=== PATIENT | male | born 1960 | race Native Hawaiian/Other Pacific Islander ===

== ENCOUNTER 2017-09-02 08:02 | Emergency (ER) | payer OTHER ==
[2017-09-02] MEDS ORDERED: ONDANSETRON 4 MG/2 ML VIAL IVP STA (08:12)
[2017-09-02] MEDS ORDERED: SODIUM CHLORIDE 0.9% 1,000 ML IV STA (08:12)
[2017-09-02 08:44] LABS: Basophils % (A) 0 %; Eosinophils # (A) 0.1 k/uL (0-0.7); Eosinophils % (A) 1 %; HCT 49.9 % (39.0-53.0); HGB 16.5 gm/dL (13.0-17.5); Lymphocytes % (A) 11 %; MCH 29.7 pg (25.0-35.0); MCV 90.2 fL (80.0-100.0); Mean Platelet Volume 7.4; Monocytes # (A) 0.4 k/uL (0-1.0); Monocytes % (A) 5 %; Neutrophils # (A) 7.3 k/uL (1.3-7.7); Neutrophils % (A) 82 %; Platelet Count 216 k/uL (150-450); RBC 5.54 m/uL (4.30-5.90); RDW 13.7 % (11.5-15.5); WBC 8.9 k/uL (3.8-10.6)
--- NOTE | 2017-09-02 08:47 | ED ---
Nausea/Vomiting/Diarrhea HPI - General Chief complaint: Nausea/Vomiting/Diarrhea Stated complaint: vomiting Time Seen by Provider: 09/02/17 08:12 Source: patient, RN notes reviewed Mode of arrival: ambulatory Limitations: no limitations - History of Present Illness Initial comments: 57-year-old male presents emergency Department with chief complaint of nausea vomiting. Patient states that he woke up at 3 AM abruptly and states that his stomach does not feel well. Patient states that a bowel movement that time which was not diarrhea. Denies any melena or hematochezia. Patient states that his been vomiting and has had several episodes since. Patient states that he has not felt well states that he felt dizzy and felt using a pass out. Patient denies any chest pain, shortness of breath. Patient states that he is pressure in his upper abdomen and sharp pain prior to him having a bout of emesis. Patient has had prior hernia repair but denies any prior cholecystectomy or appendectomy. Patient correlates his abdominal issues with medications. Patient states that he was switched to lisinopril from losartan. He states that he's taken on 3 separate occasions and every time he is taking that his stomach has not felt well. - Related Data Home Medications Medication Instructions Recorded Confirmed HYDROcodone/APAP 5-325MG [[place] 1 tab PO DAILY PRN 09/02/17 09/02/17 5-325] Lisinopril-Hctz 20-25 mg 1 tab PO DAILY 09/02/17 09/02/17 [Zestoretic 20-25] Metoprolol Tartrate [Lopressor] 50 mg PO BID 09/02/17 09/02/17 amLODIPine [Norvasc] 10 mg PO DAILY 09/02/17 09/02/17 Previous Rx's Medication Instructions Recorded Ondansetron Odt [Zofran Odt] 4 mg PO Q8HR PRN #10 tab 09/02/17 Allergies Allergy/AdvReac Type Severity Reaction Status Date / Time No Known Allergies Allergy Verified 09/02/17 09:26 Review of Systems ROS Statement: Those systems with pertinent positive or pertinent negative responses have been documented in the HPI. ROS Other: All systems not noted in ROS Statement are negative. Past Medical History Past Medical History: Hypertension History of Any Multi-Drug Resistant Organisms: None Reported Past Surgical History: Orthopedic Surgery, Tonsillectomy Past Psychological History: No Psychological Hx Reported Smoking Status: Never smoker Past Alcohol Use History: None Reported Past Drug Use History: None Reported General Exam Limitations: no limitations General appearance: alert, in no apparent distress Head exam: Present: atraumatic, normocephalic, normal inspection Eye exam: Present: normal appearance, PERRL, EOMI. Absent: scleral icterus, conjunctival injection, periorbital swelling ENT exam: Present: normal exam, normal oropharynx, mucous membranes moist Neck exam: Present: normal inspection, full ROM. Absent: tenderness, meningismus, lymphadenopathy Respiratory exam: Present: normal lung sounds bilaterally. Absent: respiratory distress, wheezes, rales, rhonchi, stridor Cardiovascular Exam: Present: regular rate, normal rhythm, normal heart sounds. Absent: systolic murmur, diastolic murmur, rubs, gallop, clicks GI/Abdominal exam: Present: soft, tenderness (Mild to moderate upper abdominal tenderness), normal bowel sounds. Absent: distended, guarding, rebound, rigid Back exam: Absent: CVA tenderness (R), CVA tenderness (L) Skin exam: Present: warm, dry, intact, normal color. Absent: rash Course Vital Signs 09/02/17 08:05 Temperature 98.3 F Pulse Rate 75 Respiratory 18 Rate Blood Pressure 175/80 O2 Sat by Pulse 98 Oximetry Medical Decision Making - Medical Decision Making 57-year-old male presents from for nausea vomiting. Patient had some upper abdominal pain. Patient has normal lab work though CT shows no evidence of jejunitis. This most likely is viral nature. He does feel improved after antiemetics and fluids. - Lab Data Result diagrams: 09/02/17 08:33 09/02/17 08:33 Lab Results 09/02/17 09/02/17 09/02/17 Range/Units 08:33 08:33 09:07 WBC 8.9 (3.8-10.6) k/uL RBC 5.54 (4.30-5.90) m/uL Hgb 16.5 (13.0-17.5) gm/dL Hct 49.9 (39.0-53.0) % MCV 90.2 (80.0-100.0) fL MCH 29.7 (25.0-35.0) pg MCHC 33.0 (31.0-37.0) g/dL RDW 13.7 (11.5-15.5) % Plt Count 216 (150-450) k/uL Neutrophils % 82 % Lymphocytes % 11 % Monocytes % 5 % Eosinophils % 1 % Basophils % 0 % Neutrophils # 7.3 (1.3-7.7) k/uL Lymphocytes # 1.0 (1.0-4.8) k/uL Monocytes # 0.4 (0-1.0) k/uL Eosinophils # 0.1 (0-0.7) k/uL Basophils # 0.0 (0-0.2) k/uL Sodium 142 (137-145) mmol/L Potassium 4.1 (3.5-5.1) mmol/L Chloride 104 (98-107) mmol/L Carbon Dioxide 27 (22-30) mmol/L Anion Gap 11 mmol/L BUN 26 H (9-20) mg/dL Creatinine 0.85 (0.66-1.25) mg/dL Est GFR (CKD-EPI)AfAm >90 (>60 ml/min/1.73 sqM) Est GFR (CKD-EPI)NonAf >90 (>60 ml/min/1.73 sqM) Glucose 129 H (74-99) mg/dL Calcium 10.3 H (8.4-10.2) mg/dL Total Bilirubin 0.7 (0.2-1.3) mg/dL AST 20 (17-59) U/L ALT 38 (21-72) U/L Alkaline Phosphatase 78 (38-126) U/L Total Protein 7.5 (6.3-8.2) g/dL Albumin 4.6 (3.5-5.0) g/dL Amylase 86 (30-110) U/L Lipase 52 (23-300) U/L Urine Color Yellow Urine Appearance Clear (Clear) Urine pH 7.0 (5.0-8.0) Ur Specific [place] 1.032 (1.001-1.035) Urine Protein Negative (Negative) Urine Glucose (UA) Negative (Negative) Urine Ketones Negative (Negative) Urine Blood Negative (Negative) Urine Nitrite Negative (Negative) Urine Bilirubin Negative (Negative) Urine Urobilinogen <2.0 (<2.0) mg/dL Ur Leukocyte Esterase Negative (Negative) Disposition Clinical Impression: Jejunitis, Enteritis Disposition: HOME SELF-CARE Condition: Stable Instructions: Acute Nausea and Vomiting (ED) Additional Instructions: Please return to the Emergency Department if symptoms worsen or any other concerns. Prescriptions: Ondansetron Odt [Zofran Odt] 4 mg PO Q8HR PRN #10 tab PRN Reason: Nausea Is patient prescribed a controlled substance at d/c from ED?: No Referrals: Margie Watson MD [Primary Care Provider] - 1-2 days Time of Disposition: 10:24
[2017-09-02 08:52] LABS: ALT 38 U/L (21-72); AST 20 U/L (17-59); Albumin 4.6 g/dL (3.5-5.0); Alkaline Phosphatase 78 U/L (38-126); Amylase 86 U/L (30-110); Anion Gap 11 mmol/L; Blood Urea Nitrogen 26 mg/dL (9-20); Calcium 10.3 mg/dL (8.4-10.2); Carbon Dioxide 27 mmol/L (22-30); Chloride 104 mmol/L (98-107); Glucose 129 mg/dL (74-99); Lipase 52 U/L (23-300); Potassium 4.1 mmol/L (3.5-5.1); Sodium 142 mmol/L (137-145); Total Bilirubin 0.7 mg/dL (0.2-1.3); Total Protein 7.5 g/dL (6.3-8.2)
[2017-09-02] MEDS ORDERED: KETOROLAC 30 MG/ML 1 ML VIAL IVP STA (09:09)
[2017-09-02 09:20] LABS: Appearance,Urine Clear (Clear); Bilirubin,Urine Negative (Negative); Blood,Urine Negative (Negative); Color,Urine Yellow; Glucose,Urine (UA) Negative (Negative); Ketones,Urine Negative (Negative); Leukocyte Esterase,Urine Negative (Negative); Nitrite,Urine Negative (Negative); Protein,Urine Negative (Negative); Specific Gravity,Urine 1.032 (1.001-1.035); Urobilinogen,Urine <2.0 mg/dL (<2.0)
--- NOTE | 2017-09-02 09:30 | CT ---
EXAMINATION TYPE: CT abdomen pelvis w con DATE OF EXAM: 09/02/2017 COMPARISON: NONE INDICATION: Vomiting for 5 hours DLP: 920.90 mGycm, Automated exposure control for dose reduction was used. CONTRAST: 100 ml mL of Isovue 300. Study performed without Oral Contrast TECHNIQUE: Axial images were obtained from above the diaphragm to the pubic rami in the axial plane a t 5 mm thick sections. Reconstructed images are reviewed on the computer in the coronal plane. FINDINGS: Limited CT sections are obtained the lung bases. The lung bases are clear. CT ABDOMEN: Liver: r tiny cyst may be at the superior medial right lobe liver measuring 0.4 cm. Spleen: Normal Pancreas: Normal Adrenal glands: The adrenal glands are normal. Gallbladder: Normal Kidneys: No masses are evident. No hydronephrosis is present. There is a 6.0 cm cyst at superior po le right kidney measuring 8 Hounsfield units. A 0.3 cm calcification is within the mid anterior left kidney without hydronephrosis. A 2.4 cm cyst on the posterior inferior right kidney measuring 17 Houn sfield units. Delayed images were obtained through the kidneys, which remain unremarkable. Aorta: Vascular calcification is within the aorta. Inferior vena cava: Normal. CT PELVIS: Proximal small bowel loops are dilated has some mildly thickened wall in the proximal jejunum. Correl ate for jejunitis. Study is done without oral contrast limiting the evaluation. A few diverticuli wit hout acute diverticulitis are within the sigmoid colon. Appendix: Normal as visualized. Urinary bladder: Normal. Genitourinary structures: Prostate is enlarged and contains multiple calcifications. Osseous structures: No suspicious lytic or sclerotic lesions. IMPRESSIONS: 1. Proximal jejunum has thickened roper are slightly prominent. Correlate for jejunitis. 2. Right renal cysts. 3. Nonobstructing left renal stone.
[2017-09-02 10:36] VITALS: BP 166/79; PULSE 61; RESP 16; TEMP 97.8
== END 2017-09-02 10:36 | disposition home or self-care (01) ==
LOC: EC 08:02
DX: K52.9 Noninfective gastroenteritis and colitis, unspecified (principal); I10 Essential (primary) hypertension; Z79.899 Other long term (current) drug therapy
CPT/HCPCS: 36415; 80053; 82150; 83690; 85025; 81003; 74177; 99284; 96374; 96375; 96361; J2405; J1885; Q9967

== ENCOUNTER 2017-11-07 08:38 | Emergency (ER) | payer OTHER ==
[2017-11-07] MEDS ORDERED: MORPHINE SULFATE 4 MG/ML SYRINGE IM STA (08:48)
[2017-11-07] MEDS ORDERED: LIDOCAINE 1% INJ 10MG/ML (20 ML MDV) SQ ONE (08:48)
[2017-11-07] MEDS ORDERED: ceFAZolin 1,000 MG VIAL IM STA (08:48)
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
[2017-11-07] MEDS ORDERED: ACET/COD 300 MG/30 MG STARTER PACK 6 TAB BTL PO STA (09:29)
--- NOTE | 2017-11-07 09:29 | XR ---
EXAMINATION TYPE: XR finger LT , 3 VIEWS DATE OF EXAM ORDERED: 11/07/2017 HISTORY: Pain. COMPARISON: None. FINDINGS: There has been amputation of the distal aspect of the index finger. This involves the tuft of the distal phalanx of the index finger. IMPRESSION: AMPUTATION OF THE TUFT OF THE DISTAL PHALANX OF THE LEFT INDEX FINGER. CODE B: INITIAL ENCOUNTER FOR OPEN FRACTURE TYPE ONE OR 2.
[2017-11-07 09:57] VITALS: BP 151/73; PULSE 72; RESP 16; TEMP 98.1
== END 2017-11-07 09:57 | disposition home or self-care (01) ==
LOC: EC 08:38
DX: S68.111A Complete traumatic metacarpophalangeal amputation of left index finger, initial encounter (principal); I10 Essential (primary) hypertension; Z79.899 Other long term (current) drug therapy; W20.8XXA Other cause of strike by thrown, projected or falling object, initial encounter; Y93.89 Activity, other specified
CPT/HCPCS: 99283; 64450; 96372 ×2; 73140; J2270; J0690; J2001

== ENCOUNTER → 2019-01-12 | Outpatient (CLI) | payer OTHER ==
--- NOTE | 2019-01-13 07:44 | US ---
EXAMINATION TYPE: US kidneys/renal and bladder DATE OF EXAM: 01/12/2019 COMPARISON: CT 09/02/2017 CLINICAL HISTORY: N28.1 Cyst of kidneys. EXAM MEASUREMENTS: Right Kidney: 10.3 x 3.8 x 5.1 cm Left Kidney: 10.2 x 5.0 x 4.8 cm Post Void Residual Volume: 3.6 mL Right Kidney: cysts upper pole 3.6 x 3.7 x 2.3 cm, lower pole 2.7 x 1.8 x 2.0 cm Left Kidney: small hyperechogenic area 1.1 x 1.0 x0.8 cm that may simply represent renal sinus fat t hat is prominent as no shadowing is seen. No hydro seen Bladder: wnl Bilateral Jets seen: Yes Normal Post Void Residual: Yes There is no evidence for hydronephrosis at this point in time. The urinary bladder is anechoic. Bila teral ureteral jets are seen. IMPRESSION: 1. 1.1 cm nonobstructing left renal calculus versus more likely prominent renal sinus fat on the left . No hydronephrosis of either kidney. 2. Right renal cysts as demonstrated on the prior CT of 09/02/2017. The larger measures smaller than o n the prior exam of 09/02/2018 and the second smaller mass has slightly enlarged in the interval.
== END | disposition home or self-care (01) ==
LOC: RADUSWWP 15:40
PROVIDERS: ATTEND Family Medicine
DX: N28.1 Cyst of kidney, acquired (principal)
CPT/HCPCS: 76770

== ENCOUNTER 2019-04-25 11:45 | Day surgery (SDC) | payer OTHER ==
[2019-04-24 10:24] VITALS: BMI 30.4
[~2019-04-25 11:45] MED LIST: HYDROmorphone 0.5 MG/0.5 ML SYRINGE IVP PRN; LACTATED RINGERS 1,000 ML IV SCH; LIDOCAINE 1% 20 ML VIAL (10MG/ML) FOR IV START INTRADERMA PRN; ONDANSETRON 4 MG/2 ML VIAL IVP ONE; Pre Op ABX Message 1 EACH MISC MISCELLANE ONE
[2019-04-25 12:13] VITALS: TEMP 97.9
[2019-04-25] MEDS ORDERED: BUPIVACAINE (PF) 0.5% 30 ML VIAL SQ ONE ×2 (13:19→13:35)
[2019-04-25] MEDS ORDERED: LIDOCAINE 2% (PF) 20 MG/ML 10 ML AMP SQ ONE ×2 (13:19→13:35)
[2019-04-25] MEDS ORDERED: PROPOFOL 10 MG/ML 20 ML VIAL IV ONE (13:19)
[2019-04-25] MEDS ORDERED: fentaNYL (PF) 50 MCG/ML 2 ML AMP ONE (13:19)
[2019-04-25] MEDS ORDERED: KETAMINE 10 MG/ML 20 ML VIAL ONE (13:19)
[2019-04-25] MEDS ORDERED: LIDOCAINE 1% INJ 10MG/ML (20 ML MDV) ONE (13:19)
[2019-04-25] MEDS ORDERED: MIDAZOLAM 2 MG/2 ML VIAL ONE (13:19)
[2019-04-25 14:12] VITALS: BP 139/81; PULSE 60; RESP 18
--- NOTE | 2019-04-26 05:11 | OP ---
OPERATIVE REPORT DATE OF SURGERY: 04/25/2019. PREOPERATIVE DIAGNOSIS: Chronic painful nail spike, status post partial amputation, left index finger tip. POSTOPERATIVE DIAGNOSIS: Chronic painful nail spike, status post partial amputation, left index finger tip. PROCEDURE: Excision of nail spike left index finger tip. INDICATIONS: This 58-year-old man had a prior partial amputation at the distal phalanx level. He has had a chronic painful nail spike which has not been adequately treated conservatively and is being excised at this time. DESCRIPTION OF PROCEDURE: This 58-year-old man taken was taken to the operative suite, given IV sedation. A digital block was performed of the left index finger with a combination of Xylocaine and Marcaine, both without epinephrine. Approximately 5 mL were used. A [place] drain was used as a proximal tourniquet. Under 4.5 loupe magnification, an elliptical full-thickness tissue was performed around the nail spike down to the periosteum of the remaining distal phalanx. The area was rongeured with a grand baby rongeur. The tourniquet was then released. Hemostasis was satisfactory. The wound was irrigated and closed with 5-0 nylon suture. A soft bulky dressing was applied. He was taken to recovery room in satisfactory condition. MMODL / IJN: [id number] /
== END 2019-04-25 14:36 | disposition home or self-care (01) ==
LOC: OR 11:45
PROVIDERS: ATTEND Orthopaedic Surgery Hand Surgery
DX: M79.645 Pain in left finger(s) (principal); M19.142 Post-traumatic osteoarthritis, left hand; S67.191S Crushing injury of left index finger, sequela; W20.8XXS Other cause of strike by thrown, projected or falling object, sequela; Z89.022 Acquired absence of left finger(s); I10 Essential (primary) hypertension; Z79.899 Other long term (current) drug therapy
CPT/HCPCS: 11750; 88305; J2250; J2001 ×2; J2405; J3010; J2704

== ENCOUNTER → 2019-05-19 | Outpatient (CLI) | payer OTHER ==
[2019-05-19 13:32] LABS: HCT 48.9 % (39.0-53.0); HGB 15.8 gm/dL (13.0-17.5); MCH 29.7 pg (25.0-35.0); MCHC 32.4 g/dL (31.0-37.0); MCV 91.5 fL (80.0-100.0); Mean Platelet Volume 8.2; Platelet Count 250 k/uL (150-450); RBC 5.34 m/uL (4.30-5.90); RDW 12.8 % (11.5-15.5); WBC 6.9 k/uL (3.8-10.6)
[2019-05-19 13:40] LABS: ALT 25 U/L (4-49); AST 22 U/L (17-59); African American GFR (CKD) >90 (>60 ml/min/1.73 sqM); Albumin 4.9 g/dL (3.5-5.0); Alkaline Phosphatase 80 U/L (38-126); Anion Gap 9 mmol/L; Blood Urea Nitrogen 18 mg/dL (9-20); Calcium 10.2 mg/dL (8.4-10.2); Carbon Dioxide 27 mmol/L (22-30); Chloride 104 mmol/L (98-107); Glucose 100 mg/dL (74-99); Non-African American GFR(CKD) >90 (>60 ml/min/1.73 sqM); Potassium 4.4 mmol/L (3.5-5.1); Sodium 140 mmol/L (137-145); Total Bilirubin 0.7 mg/dL (0.2-1.3)
[2019-05-19 13:43] LABS: INR 0.9 (<1.2); Partial Thromboplastin Time 23.8 sec (22.0-30.0); Prothrombin Time 9.6 sec (9.0-12.0)
[2019-05-19 13:58] LABS: Appearance,Urine Clear (Clear); Bilirubin,Urine Negative (Negative); Blood,Urine Negative (Negative); Color,Urine Yellow; Glucose,Urine (UA) Negative (Negative); Ketones,Urine Negative (Negative); Leukocyte Esterase,Urine Negative (Negative); Nitrite,Urine Negative (Negative); PH, Urine 5.5 (5.0-8.0); Protein,Urine Negative (Negative); Specific Gravity,Urine 1.025 (1.001-1.035); Urobilinogen,Urine <2.0 mg/dL (<2.0)
== END | disposition home or self-care (01) ==
LOC: LABPAT 12:03
PROVIDERS: ATTEND Orthopaedic Surgery
DX: Z01.810 Encounter for preprocedural cardiovascular examination (principal); Z01.812 Encounter for preprocedural laboratory examination; M17.11 Unilateral primary osteoarthritis, right knee
CPT/HCPCS: 80053; 81003; 85027; 85610; 85730; 87070; 93005

== ENCOUNTER → 2019-09-01 | Outpatient (CLI) | payer OTHER ==
--- NOTE | 2019-09-01 08:31 | US ---
EXAMINATION TYPE: US kidneys/renal and bladder DATE OF EXAM: 09/01/2019 COMPARISON: NONE CLINICAL HISTORY: N28.1 CYST OF KIDNEYS. EXAM MEASUREMENTS: Right Kidney: 11.9 x 5.1 x 5.6 cm Left Kidney: 12.0 x 6.1 x 5.1 cm Right Kidney: upper pole cyst measuring 5.1 x 5.0 x 5.0cm, lower pole cyst measuring 2.9 x 3.0 x 2.3 cm. These appears simple. Left Kidney: hyperechoic shadowing foci measuring 0.9 x 0.6 x 0.8cm, cyst mid measuring 1.4 x 1.6 x 1.2cm. Bladder: wnl Bilateral Jets seen: Yes IMPRESSION: 1. Right renal cysts. 2. Nonobstructing left renal stone
== END | disposition home or self-care (01) ==
LOC: RADUSWWP 07:38
PROVIDERS: ATTEND Family Medicine
DX: N28.1 Cyst of kidney, acquired (principal); N20.0 Calculus of kidney
CPT/HCPCS: 76770

== ENCOUNTER 2019-09-28 06:51 | Emergency (ER) | payer OTHER ==
[2019-09-28 06:58] VITALS: RESP 18; TEMP 98.2
[2019-09-28] MEDS ORDERED: MECLIZINE 12.5 MG TAB PO STA (07:17)
[2019-09-28] MEDS ORDERED: SODIUM CHLORIDE 0.9% 1,000 ML IV STA (07:17)
[2019-09-28] MEDS ORDERED: ONDANSETRON 4 MG/2 ML VIAL IVP STA (07:17)
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
[2019-09-28] MEDS ORDERED: SODIUM CHLORIDE 0.9% 1,000 ML IV SCH (07:30)
[2019-09-28 08:08] LABS: Basophils % (A) 0 %; Eosinophils % (A) 1 %; HCT 44.1 % (39.0-53.0); HGB 14.2 gm/dL (13.0-17.5); Lymphocytes # (A) 0.8 k/uL (1.0-4.8); Lymphocytes % (A) 19 %; MCH 29.3 pg (25.0-35.0); MCHC 32.2 g/dL (31.0-37.0); Mean Platelet Volume 8.3; Monocytes # (A) 0.3 k/uL (0-1.0); Monocytes % (A) 7 %; Neutrophils # (A) 3.2 k/uL (1.3-7.7); Neutrophils % (A) 72 %; Platelet Count 190 k/uL (150-450); RBC 4.84 m/uL (4.30-5.90); WBC 4.5 k/uL (3.8-10.6)
[2019-09-28 08:14] LABS: Appearance,Urine Clear (Clear); Bilirubin,Urine Negative (Negative); Blood,Urine Small (Negative); Color,Urine Yellow; Glucose,Urine (UA) Negative (Negative); Ketones,Urine Negative (Negative); Leukocyte Esterase,Urine Negative (Negative); Mucus,Urine Many /hpf; Nitrite,Urine Negative (Negative); Protein,Urine Trace (Negative); RBC,Urine 1 /hpf (0-5); Urobilinogen,Urine <2.0 mg/dL (<2.0); WBC,Urine 1 /hpf (0-5)
[2019-09-28 08:21] LABS: INR 0.9 (<1.2); Partial Thromboplastin Time 24.1 sec (22.0-30.0); Prothrombin Time 9.7 sec (9.0-12.0)
[2019-09-28 08:24] LABS: ALT 18 U/L (4-49); AST 20 U/L (17-59); African American GFR (CKD) >90 (>60 ml/min/1.73 sqM); Albumin 3.9 g/dL (3.5-5.0); Alkaline Phosphatase 63 U/L (38-126); Anion Gap 6 mmol/L; Blood Urea Nitrogen 14 mg/dL (9-20); Carbon Dioxide 24 mmol/L (22-30); Chloride 109 mmol/L (98-107); Glucose 104 mg/dL (74-99); Non-African American GFR(CKD) >90 (>60 ml/min/1.73 sqM); Potassium 3.9 mmol/L (3.5-5.1); Sodium 139 mmol/L (137-145); Total Bilirubin 0.8 mg/dL (0.2-1.3); Total Protein 6.4 g/dL (6.3-8.2)
--- NOTE | 2019-09-28 08:30 | CT ---
EXAMINATION TYPE: CT brain wo con DATE OF EXAM: 09/28/2019 COMPARISON: None HISTORY: 59-year-old male with dizziness, new onset vertigo TECHNIQUE: Examination was done in axial plane without intravenous contrast. Coronal and sagittal r econstructions performed. CT DLP: 1099.4 mGycm Automated exposure control for dose reduction was used. FINDINGS: There is no evidence of acute intracranial hemorrhage, acute ischemic changes, mass, mass-effect, or extra-axial fluid collection. There is no effacement of cerebral sulci or basal subarachnoid cister ns. There is no hydrocephalus. There is no midline shift. Pel[place]-white matter distinction is preserv ed. Paranasal sinuses and mastoid air cells well pneumatized. Only a small portion of the orbits/globes a re visualized. IMPRESSION: No acute intracranial abnormality seen.
[2019-09-28 08:57] VITALS: BP 161/84; PULSE 60
== END 2019-09-28 09:22 | disposition home or self-care (01) ==
LOC: EC 06:51
DX: R42 Dizziness and giddiness (principal); H55.00 Unspecified nystagmus; I10 Essential (primary) hypertension; Z79.899 Other long term (current) drug therapy
CPT/HCPCS: 36415; 93005; 80053; 85025; 85610; 85730; 81001; 70450; 99285; 96374; 96361; J2405

== ENCOUNTER → 2019-12-29 | Outpatient (CLI) | payer OTHER | END | disposition home or self-care (01) | LOC: LABWHC1 11:19 | PROVIDERS: ATTEND Family Medicine | DX: J01.90 Acute sinusitis, unspecified (principal); R53.83 Other fatigue; Z20.828 Contact with and (suspected) exposure to other viral communicable diseases | CPT/HCPCS: U0003; C9803 ==

== ENCOUNTER 2020-03-18 16:03 | Inpatient (IN) | payer OTHER ==
[2020-03-18 16:22] LABS: Glucose,Whole Blood 94 mg/dL (75-99)
[2020-03-18] MEDS ORDERED: SODIUM CHLORIDE 0.9% 1,000 ML IV STA (16:23)
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
[2020-03-18 16:30] LABS: Basophils # (A) 0.1 k/uL (0-0.2); Basophils % (A) 1 %; Eosinophils # (A) 0.1 k/uL (0-0.7); Eosinophils % (A) 2 %; HGB 15.7 gm/dL (13.0-17.5); Lymphocytes # (A) 1.4 k/uL (1.0-4.8); Lymphocytes % (A) 17 %; MCH 30.8 pg (25.0-35.0); MCHC 33.5 g/dL (31.0-37.0); MCV 91.8 fL (80.0-100.0); Mean Platelet Volume 7.2; Monocytes # (A) 0.6 k/uL (0-1.0); Monocytes % (A) 7 %; Neutrophils # (A) 5.9 k/uL (1.3-7.7); Neutrophils % (A) 72 %; Platelet Count 217 k/uL (150-450); RBC 5.12 m/uL (4.30-5.90); RDW 12.8 % (11.5-15.5); WBC 8.2 k/uL (3.8-10.6)
[2020-03-18 16:44] LABS: ALT 34 U/L (4-49); AST 34 U/L (17-59); African American GFR (CKD) >90 (>60 ml/min/1.73 sqM); Albumin 4.5 g/dL (3.5-5.0); Alkaline Phosphatase 78 U/L (38-126); Anion Gap 5 mmol/L; Blood Urea Nitrogen 14 mg/dL (9-20); Calcium 9.7 mg/dL (8.4-10.2); Carbon Dioxide 27 mmol/L (22-30); Chloride 107 mmol/L (98-107); Glucose 103 mg/dL (74-99); Non-African American GFR(CKD) >90 (>60 ml/min/1.73 sqM); Potassium 3.8 mmol/L (3.5-5.1); Sodium 139 mmol/L (137-145); Total Bilirubin 0.7 mg/dL (0.2-1.3); Total Protein 7.6 g/dL (6.3-8.2)
[2020-03-18 16:45] LABS: INR 0.9 (<1.2); Partial Thromboplastin Time 23.1 sec (22.0-30.0); Prothrombin Time 9.7 sec (9.0-12.0)
--- NOTE | 2020-03-18 16:56 | CT ---
EXAMINATION TYPE: CT brain wo con for TPA DATE OF EXAM: 03/18/2020 COMPARISON: 09/28/2019 HISTORY: left arm numbness CT DLP: unavailable mGycm Automated exposure control for dose reduction was used. Exam performed without contrast. Ventricles and sulci appear normal. There is no mass effect nor midline shift. There is no sign of in tracranial hemorrhage. Calvarium is intact. There is no evidence of cerebral edema. Skull base is int act. There is small mucus retention cyst left maxillary sinus. IMPRESSION: Negative unenhanced head CT scan. No change.
--- NOTE | 2020-03-18 17:29 | CT ---
EXAMINATION TYPE: CT angio head neck DATE OF EXAM: 03/18/2020 COMPARISON: None HISTORY: left arm numbness CT DLP: 623.9 mGycm Automated exposure control for dose reduction was used. CONTRAST: Performed with IV Contrast, patient injected with 65 mL of Isovue 370. There are 3-D post processed images. There is normal branching pattern of the great vessels on the aortic arch. There is bilateral arteria l flow in the subclavian arteries. There is arterial flow in the common internal and external carotid arteries bilaterally. There is wide patency of the carotid artery bifurcations. There is arterial fl ow in both vertebral arteries which are fairly symmetric. There is no evidence of carotid or vertebra l artery aneurysm or dissection. There is arterial flow in the vertebrobasilar artery system. There is arterial flow in the anterior middle and posterior cerebral arteries. I see no evidence of i ntracranial arterial stenosis. There is no aneurysm or neovascularity. There is some looping of the p osterior cerebral arteries proximally. There is no mass effect. There is normal opacification of the venous sinuses. The remainder of exam is unremarkable. IMPRESSION: Negative CT angiogram of the neck. Negative CT angiogram of the brain.
[2020-03-18] MEDS ORDERED: ASPIRIN 325 MG TAB PO STA (18:13)
[2020-03-18] MEDS: SODIUM CHLORIDE 0.9% 1,000 ML IV SCH (18:32)
[2020-03-18] MEDS: ATORVASTATIN 40 MG TAB PO SCH (18:35)
--- NOTE | 2020-03-18 19:11 | XR ---
EXAMINATION TYPE: XR chest 2V DATE OF EXAM: 03/18/2020 COMPARISON: 11/15/2008 HISTORY: Altered mental status TECHNIQUE: FINDINGS: Heart and mediastinum are normal. Lungs are clear. Diaphragm is normal. Bony thorax appears normal. IMPRESSION: Normal chest. No change.
[2020-03-18] MEDS ORDERED: MECLIZINE 25 MG TAB PO PRN (19:56)
[2020-03-18] MEDS ORDERED: ONDANSETRON ODT 4 MG TAB PO PRN (19:56)
[2020-03-18] MEDS ORDERED: ALPRAZolam 0.25 MG TAB PO PRN (19:57)
[2020-03-18] MEDS: HEPARIN SODIUM,PORCINE 5,000 UNIT/ML 1 ML VIAL SQ SCH (20:51)
[2020-03-18] MEDS: SPIRONOLACTONE 25 MG TAB PO SCH (20:51)
[2020-03-18] MEDS: METOPROLOL TARTRATE 50 MG TAB PO SCH (20:52)
--- NOTE | 2020-03-18 22:02 | HP ---
HISTORY AND PHYSICAL DATE OF SERVICE: 03/18/2020. CHIEF COMPLAINTS: Weakness and as well as left arm numbness and dizziness. HISTORY OF PRESENT ILLNESS: This 59-year-old gentleman with a past medical history of hypertension, history of DJD being followed by Dr. Pa Hernandez in the outpatient setting was experiencing some dizziness this morning. The patient had previously vertigo. The patient felt dizzy, unsteady this morning and subsequently patient had some clumsiness of the left upper arm. Subsequently again, patient had numbness on the left upper arm on multiple occasions. The patient came to [facility] and was admitted for evaluation and treatment. Initial labs were within normal limits. Patient underwent a CT scan of the brain which showed no acute abnormality. CT angio of the brain was also done which showed no abnormality. The patient admitted for further evaluation. Neurology evaluation in progress. The EKG showed occasional PVC, otherwise no acute changes are noted. There is no history of fever, rigors. No history of headache, loss of consciousness, seizures at this time. PAST MEDICAL HISTORY: Hypertension, history of vertigo, history of DJD, tonsillectomy. MEDICATIONS: Home medications are Zofran, Procardia, Antivert, vitamin C, Aldactone. Lopressor. ALLERGIES: None. FAMILY HISTORY: No history of heart disease or strokes in family. SOCIAL HISTORY: No history of smoking. No alcohol intake. REVIEW OF SYSTEMS: ENT: No diminished vision. No diminished hearing. Otherwise as mentioned earlier. CARDIOVASCULAR: S1, S2. Respiration: No cough. No hemoptysis. GI no nausea or vomiting. : Urine retention. Nervous system as mentioned earlier. ALLERGY/IMMUNOLOGY: No asthma or hayfever. MUSCULOSKELETAL as mentioned earlier. HEMATOLOGY/ONCOLOGY: No history of anemia. ENDOCRINE: No history of diabetes or hypothyroidism. CONSTITUTIONAL: As mentioned earlier. DERMATOLOGY: Negative. RHEUMATOLOGY: Negative. PSYCHIATRY: As mentioned. PHYSICAL EXAMINATION: The patient is alert and oriented times three. Pulse is 72, blood pressure 180/90, respiration 18, temperature 99.1, pulse ox 98% on room air. HEENT: Conjunctivae normal. Oral mucosa moist. Eye movements are fully noted in all directions. NECK is no jugular venous distention. No carotid bruit. No lymph node enlargement. Cardiovascular system: S1, S2 muffled. No S3, no S4. RESPIRATORY: Breath sounds diminished in the bases. No rhonchi. No crackles. ABDOMEN: Soft, nontender. No mass palpable. LEGS: No edema. No swelling. Nervous system: Higher functions as mentioned earlier. Moves all 4 limbs. No focal motor or sensory deficits. LYMPHATICS: No lymph nodes palpable in the neck, axillae or groin. SKIN: No ulcer, no rash and no bleeding. JOINTS: No active deforming arthropathy. LABS: CBC within normal limits. INR 0.9. CMP within normal limits. ASSESSMENT: 1. Numbness and weakness of the left upper arm. Possible transient ischemic attack involving the right hemisphere. 2. Hypertension. 3. History of the renal cyst. 4. History of degenerative joint disease. RECOMMENDATIONS AND DISCUSSION: In this 59-year-old gentleman who presented with multiple medical issues, at this time, I recommend to continue current management and symptomatic treatment, antiplatelet agents, Lipitor. Neurology consultation. Complete neurovascular workup and as well as neuro checks. Prognosis guarded because of multiple complex medical issues. Further recommendations to follow. Home medications will be continued. Copy of this dictation forwarded to Dr. Vipul Winston who will follow the patient tomorrow. We will continue with permissive hypertension as well. See orders for details. MMODL / IJN: [id number] /
[2020-03-19] MEDS: SODIUM CHLORIDE 0.9% 1,000 ML IV SCH ×2 (06:20→16:41)
[2020-03-19] MEDS: PANTOPRAZOLE 40 MG TABLET PO SCH (06:20)
[2020-03-19 07:52] LABS: Basophils % (A) 1 %; Eosinophils % (A) 1 %; HCT 42.6 % (39.0-53.0); HGB 14.2 gm/dL (13.0-17.5); Lymphocytes % (A) 23 %; MCH 31.2 pg (25.0-35.0); MCHC 33.3 g/dL (31.0-37.0); MCV 93.7 fL (80.0-100.0); Mean Platelet Volume 7.4; Monocytes # (A) 0.3 k/uL (0-1.0); Monocytes % (A) 7 %; Neutrophils # (A) 2.9 k/uL (1.3-7.7); Neutrophils % (A) 67 %; Platelet Count 186 k/uL (150-450); RBC 4.54 m/uL (4.30-5.90); WBC 4.4 k/uL (3.8-10.6)
[2020-03-19 08:01] LABS: African American GFR (CKD) >90 (>60 ml/min/1.73 sqM); Anion Gap 2 mmol/L; Blood Urea Nitrogen 13 mg/dL (9-20); Carbon Dioxide 28 mmol/L (22-30); Chloride 108 mmol/L (98-107); Cholesterol 205 mg/dL (<200); Glucose 105 mg/dL (74-99); HDL Cholesterol 39 mg/dL (40-60); LDL Cholesterol,Calculated 141 mg/dL (0-99); Non-African American GFR(CKD) >90 (>60 ml/min/1.73 sqM); Potassium 4.2 mmol/L (3.5-5.1); Sodium 138 mmol/L (137-145); Triglycerides 126 mg/dL (<150)
[2020-03-19] MEDS ORDERED: ASPIRIN 325 MG TAB PO SCH (09:00)
[2020-03-19] MEDS: METOPROLOL TARTRATE 50 MG TAB PO SCH (10:02)
[2020-03-19] MEDS: SPIRONOLACTONE 25 MG TAB PO SCH (10:02)
[2020-03-19] MEDS: ASCORBIC ACID 500 MG TAB PO SCH (10:02)
[2020-03-19] MEDS: HEPARIN SODIUM,PORCINE 5,000 UNIT/ML 1 ML VIAL SQ SCH ×2 (10:03→20:32)
[2020-03-19] MEDS: ATORVASTATIN 40 MG TAB PO SCH (10:03)
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
--- NOTE | 2020-03-19 10:32 | ECHOF ---
Referral Reason:Thrombus MEASUREMENTS -------- HEIGHT: 175.3 cm WEIGHT: 92.5 kg BP: RVIDd: 2.6 cm (< 3.3) IVSd: 1.3 cm (0.6 - 1.1) LVIDd: 4.0 cm (3.9 - 5.3) LVPWd: 1.6 cm (0.6 - 1.1) IVSs: 1.7 cm LVIDs: 3.2 cm LVPWs: 1.6 cm LA Diam: 4.2 cm (2.7 - 3.8) LAESV Index (A-L): 25.76 ml/m Ao Diam: 2.9 cm (2.0 - 3.7) AV Cusp: 2.0 cm (1.5 - 2.6) MV EXCURSION: 20.477 mm (> 18.000) MV EF SLOPE: 67 mm/s (70 - 150) EPSS: 0.9 cm MV E Boris: 0.45 m/s MV DecT: 204 ms MV A Boris: 0.91 m/s MV E/A Ratio: 0.49 FINDINGS -------- Sinus rhythm. This was a technically good study. LV size, wall thickness and systolic function are normal, with an EF greater than 55%. The left bea tricular size is normal. The right ventricle is normal in size. LA is midly dilated 29-33ml/m2. The right atrial size is normal. The aortic valve is trileaflet, and appears structurally normal. No aortic stenosis or regurgitation. Mild mitral regurgitation is present. Mild tricuspid regurgitation present. Right ventricular systolic pressure is normal at < 35 mmHg. There is no pulmonic regurgitation present. The aortic root size is normal. There is no pericardial effusion. CONCLUSIONS -------- 1. LV size, wall thickness and systolic function are normal, with an EF greater than 55%. 2. The left ventricular size is normal. 3. The right ventricle is normal in size. 4. LA is midly dilated 29-33ml/m2. 5. The right atrial size is normal. 6. Mild mitral regurgitation is present. 7. Mild tricuspid regurgitation present. 8. There is no pulmonic regurgitation present. 9. The aortic root size is normal. 10. There is no pericardial effusion. RN DOCUMENT IMPROVEMENT: Ynes Johnson RDCS
[2020-03-19] MEDS: CLOPIDOGREL 75 MG TAB PO SCH (11:35)
--- NOTE | 2020-03-19 12:55 | CT ---
EXAMINATION TYPE: CT brain wo con for TPA DATE OF EXAM: 03/19/2020 COMPARISON: 03/18/2020 HISTORY: 59-year-old male Neuro deficit, acute, stroke suspected. Left-sided weakness. TECHNIQUE: Examination was done in axial plane without intravenous contrast. Coronal and sagittal r econstructions performed. CT DLP: 1176.8 mGycm Automated exposure control for dose reduction was used. FINDINGS: There is no evidence of acute intracranial hemorrhage, acute ischemic changes, mass, mass-effect, or extra-axial fluid collection. There is no effacement of cerebral sulci or basal subarachnoid cister ns. There is no hydrocephalus. There is no midline shift. Pelletier-white matter distinction is preserv ed. Small polyp or mucosal retention cyst floor of the left maxillary sinus. Mastoid air cells well pneum atized. Cerumen left external auditory canal. Orbits and globes are intact. IMPRESSION: Stable exam. No acute intracranial abnormality seen.
[2020-03-19 12:59] LABS: Glucose,Whole Blood 141 mg/dL (75-99)
[2020-03-19] MEDS ORDERED: Alteplase PER PHARMACY Stroke 1 EACH MISC MISCELLANE PRN (13:18)
[2020-03-19] MEDS ORDERED: ALTEPLASE BOLUS FOR STROKE 8 MG in EMPTY SYRINGE 1 SYR IV STA (13:18)
[2020-03-19] MEDS ORDERED: ALTEPLASE 75 MG in EMPTY BAG 1 BAG IV STA (13:18)
[2020-03-19 13:25] LABS: Basophils # (A) 0.1 k/uL (0-0.2); Basophils % (A) 1 %; Eosinophils % (A) 1 %; HCT 46.5 % (39.0-53.0); HGB 15.2 gm/dL (13.0-17.5); Lymphocytes # (A) 1.6 k/uL (1.0-4.8); Lymphocytes % (A) 25 %; MCHC 32.7 g/dL (31.0-37.0); MCV 94.9 fL (80.0-100.0); Mean Platelet Volume 7.7; Monocytes # (A) 0.4 k/uL (0-1.0); Monocytes % (A) 6 %; Neutrophils % (A) 64 %; Platelet Count 221 k/uL (150-450); RBC 4.91 m/uL (4.30-5.90); WBC 6.2 k/uL (3.8-10.6)
[2020-03-19 13:28] LABS: INR 0.9 (<1.2); Partial Thromboplastin Time 23.7 sec (22.0-30.0); Prothrombin Time 9.9 sec (9.0-12.0)
--- NOTE | 2020-03-19 13:43 | CT ---
EXAMINATION TYPE: CODE STROKE: CTA head neck DATE OF EXAM: 03/19/2020 COMPARISON: 03/18/2020 HISTORY: 59-year-old male code stroke, Neuro deficit TECHNIQUE: Contiguous axial scanning of the head and neck performed with IV Contrast, patient injecte d with 60 mL of Isovue 370. Coronal/sagittal MIP reconstructions performed. 3-D reconstructions gener ated on a dedicated independent workstation. CT DLP: 673.1 mGycm Automated exposure control for dose reduction was used. FINDINGS: NECK: Conventional arch vessel branching anatomy. There may be mild atherosclerotic narrowing at the origin of the left vertebral artery. Otherwise, th e vertebral arteries are patent throughout its course. Possible moderate 50% narrowing at the proximal right common carotid artery at the level of the thora cic inlet, refer to axial image 23 and coronal image 14. Findings may be artifactual due to excessive artifact at this level. Remainder of the right common and internal carotid arteries are patent. The upper right ICA is tortuo us. The left common and internal carotid arteries are widely patent. Upper left ICA is tortuous. Minimal eccentric calcifications are present in the left carotid bulb. HEAD: V4 segment right vertebral artery becomes hypoplastic. Otherwise, both vertebral and basilar arteries are patent. Prominent posterior communicating artery on the right. The internal carotid arteries are patent as is the remainder of the anterior circulation. No aneurysmal change is seen. IMPRESSION: NECK: 1. POSSIBLE MODERATE 50% NARROWING PROXIMAL RIGHT COMMON CAROTID ARTERY AT THE LEVEL OF THE THORACIC INLET (AXIAL IMAGE 23 AND CORONAL IMAGE 14) VERSUS ARTIFACT. 2. OTHERWISE, PATENT CAROTID AND VERTEBRAL ARTERIES OF THE NECK. BRAIN: 3. NO LARGE VESSEL INTRACRANIAL ARTERIAL OCCLUSION, SIGNIFICANT STENOSIS, OR ANEURYSMAL CHANGE IS SEE N.
[2020-03-19 13:55] LABS: ALT 30 U/L (4-49); AST 26 U/L (17-59); African American GFR (CKD) >90 (>60 ml/min/1.73 sqM); Albumin 4.2 g/dL (3.5-5.0); Alkaline Phosphatase 75 U/L (38-126); Anion Gap 6 mmol/L; Blood Urea Nitrogen 14 mg/dL (9-20); Calcium 9.6 mg/dL (8.4-10.2); Carbon Dioxide 25 mmol/L (22-30); Chloride 104 mmol/L (98-107); Glucose 174 mg/dL (74-99); Non-African American GFR(CKD) 86 (>60 ml/min/1.73 sqM); Potassium 4.1 mmol/L (3.5-5.1); Sodium 135 mmol/L (137-145); Total Bilirubin 0.7 mg/dL (0.2-1.3); Total Protein 6.9 g/dL (6.3-8.2)
[2020-03-19] MEDS ORDERED: SODIUM CHLORIDE 0.9% 50 ML MINI-BAG IV ONE (14:18)
[2020-03-19] MEDS ORDERED: CLOPIDOGREL 75 MG TAB PO STA (14:34)
--- NOTE | 2020-03-19 14:48 | PN ---
PROGRESS NOTE DATE OF SERVICE: 03/19/2020 This 59-year-old gentleman admitted with possible TIA acute stroke again had symptomatic weakness and some left facial droop on the left side today which lasted about 40 minutes. Neurology following the patient closely. CT angio showed possible moderate 50% narrowing of the proximal and vascular surgery consult has been called. The patient has been transferred to ICU for q.[address] White, neurologist, and Alteplase also been initiated. PAST MEDICAL HISTORY: Reviewed. REVIEW OF SYSTEMS: CARDIOVASCULAR SYSTEM: No angina. RESPIRATORY SYSTEM: As mentioned earlier. GI: As mentioned earlier. : No dysuria. NERVOUS SYSTEM: As mentioned earlier. CURRENT MEDICATIONS: Current medications are reviewed and include: Xanax, Alteplase, aspirin. Lipitor, Plavix, heparin, Antivert. Doses are reviewed. PHYSICAL EXAMINATION: The patient is alert, oriented x3. Pulse 59, blood pressure 192/86, respirations 16, temperature normal, pulse ox 99% on room air. HEENT: Conjunctivae normal. NECK: No jugular venous distention. CARDIOVASCULAR: S1, S2 muffled. RESPIRATORY: Breath sounds diminished at the bases. A few scattered rhonchi and crackles. ABDOMEN: Soft, nontender. LEGS: No edema. No swelling. NERVOUS SYSTEM: Minimal weakness on the left side. SKIN: No ulcer, rash or bleeding. LABS: Cholesterol 205, LDL is 141. Other labs are noted. ASSESSMENT: 1. Acute weakness of the left side, recurrent, possible acute stroke involving the right hemisphere. 2. Right carotid artery stenosis about 50%. 3. Hyperlipidemia. 4. Hypertension. 5. History of renal cyst. 6. History of degenerative joint disease. 7. Increased random blood sugar. 8. Hyperlipidemia. RECOMMENDATIONS AND DISCUSSION: This 59-year-old gentleman who presented with multiple complex medical issues, we will monitor the patient closely. Continue the current medications, continue symptomatic treatment. Continue with the antiplatelet agents. Patient is on aspirin and Plavix. Continue with Lipitor. Continue the rest of medication. Monitor blood pressure closely. Permissive hypertension. Otherwise, closely follow with Neurology. We will consult Dr. Acuña for ICU management and also will obtain Dr. Powers's evaluation for vascular surgery because of the abnormal CTA findings which is noted in the repeat testing. Once again, the prognosis guarded. Further recommendations to follow. MMODL / IJN: [id number] / JAIMIE
[2020-03-19 14:53] LABS: Glucose,Whole Blood 151 mg/dL (75-99)
--- NOTE | 2020-03-19 15:02 | MR ---
EXAMINATION TYPE: MR brain wo con DATE OF EXAM: 03/19/2020 COMPARISON: CT brain 03/19/2020 HISTORY: stroke: left hand/arm weakness and feeling unsteady CONTRAST: Performed utilizing 0 mL intravenous Gadavist gadolinium contrast. TECHNIQUE: Multiplanar, multiecho imaging on a 3.0 Lizet magnet is performed through the brain. Stud y is performed within 24 hours of arrival to the hospital. The craniovertebral junction is normal. The pituitary is normal. Diffusion-weighted imaging is performed. There is subtle hypodensity within the posterior right basa l ganglion suspicious for developing infarct. Correlate with symptoms There are subcortical white matter changes. This may be slightly greater in the frontal regions. Larg est areas in the right frontal measuring 1.1 x 0.5 cm. Migraine headaches, microvascular ischemic yenny nge could be considered. Multiple sclerosis is not excluded. Ventricles and sulci are appropriate for the patient age. IMPRESSIONS: 1. Subtle hyperintensity on diffusion-weighted imaging within the posterior right basal ganglion and delgado radiata may be some acute developing ischemic change. Correlate with symptoms. 2. Scattered subcortical and deep white matter changes likely on the basis of chronic white matter is chemic change.
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
--- NOTE | 2020-03-19 17:56 | XR ---
EXAMINATION TYPE: XR shoulder complete LT DATE OF EXAM: 03/19/2020 COMPARISON: NONE HISTORY: Left shoulder pain TECHNIQUE: 3 views FINDINGS: There is no sign of fracture nor dislocation. There is mild spurring at the glenohumeral conrad int. The AC joint appears intact. IMPRESSION: No acute abnormality of the left shoulder.
--- NOTE | 2020-03-19 18:21 | EEG ---
ELECTROENCEPHALOGRAM REPORT DATE OF SERVICE: 03/19/2020. CLINICAL HISTORY: This is a 59-year-old gentleman with repeated episodes of transient left arm weakness. The video EEG was obtained to evaluate for seizure and epileptiform activity. RELEVANT MEDICATION: The patient is not on any antiepileptic drugs. EEG TYPE: A routine 21-channel EEG was performed with video using the 10/20 electrode placement system. DESCRIPTION: Wakefulness only is obtained. During wakefulness, there is a posterior-dominant rhythm of low to moderate voltage, reactive, well modulated, of 9.5 to 10.5 hertz activity. There was no physiological stage II sleep seen. There is significant motion artifact over FP2/F4 and F8 electrodes. INTERICTAL AND ICTAL: None. ACTIVATION PROCEDURE: Photic stimulation did not evoke a posterior driving response. Hyperventilation was not performed. CLINICAL INTERPRETATION: This is a normal awake routine EEG. There is no focal slowing, epileptiform discharges or seizure during the study. Clinical correlation is recommended. TEJA / EVON: [id number] / MTDD
[2020-03-20 03:45] LABS: Basophils % (A) 0 %; Eosinophils % (A) 1 %; HGB 14.1 gm/dL (13.0-17.5); Lymphocytes # (A) 1.4 k/uL (1.0-4.8); Lymphocytes % (A) 23 %; MCH 30.5 pg (25.0-35.0); MCHC 32.8 g/dL (31.0-37.0); MCV 92.9 fL (80.0-100.0); Mean Platelet Volume 7.5; Monocytes # (A) 0.5 k/uL (0-1.0); Monocytes % (A) 8 %; Neutrophils % (A) 66 %; Platelet Count 207 k/uL (150-450); RBC 4.63 m/uL (4.30-5.90); WBC 6.1 k/uL (3.8-10.6)
[2020-03-20] MEDS: SODIUM CHLORIDE 0.9% 1,000 ML IV SCH ×3 (03:58→20:23)
[2020-03-20 03:59] LABS: African American GFR (CKD) >90 (>60 ml/min/1.73 sqM); Anion Gap 6 mmol/L; Blood Urea Nitrogen 8 mg/dL (9-20); Calcium 9.4 mg/dL (8.4-10.2); Carbon Dioxide 25 mmol/L (22-30); Chloride 107 mmol/L (98-107); Glucose 110 mg/dL (74-99); Non-African American GFR(CKD) >90 (>60 ml/min/1.73 sqM); Potassium 3.7 mmol/L (3.5-5.1); Sodium 138 mmol/L (137-145)
[2020-03-20] MEDS ORDERED: POTASSIUM CHLORIDE ER 20 MEQ TAB.ER PO SCH (06:00)
[2020-03-20] MEDS: PANTOPRAZOLE 40 MG TABLET PO SCH (07:20)
--- NOTE | 2020-03-20 09:25 | US ---
EXAMINATION TYPE: US carotid duplex BILAT DATE OF EXAM: 03/20/2020 COMPARISON: CTA neck from yesterday CLINICAL HISTORY: TIA, carotid stenosis. TIA EXAM MEASUREMENTS: RIGHT: Peak Systolic Velocity (PSV) cm/sec ----- Right CCA: 87.1 ----- Right ICA: 90.5 ----- Right ECA: 132.3 ICA/CCA ratio: 1.0 RIGHT: End Diastole cm/sec ----- Right CCA: 12.9 ----- Right ICA: 27.0 ----- Right ECA: 11.1 LEFT: Peak Systolic Velocity (PSV) cm/sec ----- Left CCA: 125.8 ----- Left ICA: 96.9 ----- Left ECA: 119.4 ICA/CCA ratio: 0.8 LEFT: End Diastole cm/sec ----- Left CCA: 17.6 ----- Left ICA: 27.0 ----- Left ECA: 13.6 VERTEBRALS (direction of flow): Right Vertebral: Antegrade Left Vertebral: Antegrade Rhythm: Normal Grayscale images show no significant focal plaque at carotid bulb level on the right and mild eccentr ic plaque on the left which correlates with CT one day earlier. IMPRESSION: No hemodynamically significant stenosis seen in either internal carotid artery. Criteria for Assigning % of Stenosis / Diameter reduction (Estimation based on the indirect measurements of the internal carotid artery velocities (ICA PSV). 1. Normal (no stenosis)=ICA PSV < 125 cm/s: ratio < 2.0: ICA EDV<40 cm/s. 2. Less than 50% stenosis=ICA PSV < 125 cm/s: ratio < 2.0: ICA EDV<40 cm/s. 3. 50 to 69% stenosis=ICA PSV of 125 to 230 cm/s: ration 2.0 ? 4.0: ICA EDV 40-100 cm/s. 4. Greater than 70% stenosis to near occlusion= ICA PSV > 230 cm/s: ratio > 4.0: ICA EDV > 100 cm/s. 5. Near occlusion= ICA PSV velocities may be low or undetectable: variable ratio and ICA EDV. 6. Total occlusion=unable to detect flow.
[2020-03-20] MEDS: HEPARIN SODIUM,PORCINE 5,000 UNIT/ML 1 ML VIAL SQ SCH ×2 (09:36→20:22)
[2020-03-20] MEDS: CLOPIDOGREL 75 MG TAB PO SCH (09:37)
[2020-03-20] MEDS: ASPIRIN 81 MG PO SCH (09:37)
[2020-03-20] MEDS: ASCORBIC ACID 500 MG TAB PO SCH (09:37)
[2020-03-20] MEDS: ATORVASTATIN 40 MG TAB PO SCH (09:37)
--- NOTE | 2020-03-20 09:45 | P.PN ---
Subjective Progress Note Date: 03/20/20 Upon seeing the patient today in the ICU, he stated that yesterday while he was getting the MRI and that was in the afternoon he felt that he had worsening of his symptoms over the left and he felt his left arm and leg was weak. He stated that he attempted to notify the MRI technicians about his symptoms but his symptoms were improving. He continues to have some weakness over the left arm and he feels unsteady walk-in. Otherwise he said much better compared to yesterday when I saw him for the stroke pager activation. He denies of any headache, blurry vision, nausea or vomiting. MR the brain on 03/19/2020 reported as subtle hyperintensity on diffusion- weighted image with in the posterior right basal ganglia and the delgado radiata may be some acute developing ischemic change. Correlate with the symptoms. Scattered subcortical and deep white matter changes likely on the basis of chronic white matter ischemic changes. I personally reviewed the MRI and I personally agree in addition I felt like there was a small focus over the right frontal that I was able to see on the diffusion-weighted image. The systolic blood pressure predominantly in the last 24 hours has been ranging in between 130's to 150. There are episodes that the systolic blood pressure is 110s or 160. Objective - Vital Signs Vital signs: Vital Signs Temp 97.6 F 03/20/20 04:00 Pulse 81 03/20/20 07:00 Resp 17 03/20/20 07:00 BP 143/84 03/20/20 07:00 Pulse Ox 95 03/20/20 07:00 Intake & Output 03/19/20 03/20/20 03/20/20 18:59 06:59 18:59 Intake Total 800 1500 100 Output Total 1150 1225 325 Balance -350 275 -225 Weight 97.2 kg Intake: IV 300 1100 100 Sodium Chloride 0.9% 1, 300 1100 100 000 ml @ 100 mls/hr IV . Q10H [facility] Rx#:[id number] Intake, IV Titration 400 Amount Sodium Chloride 0.9% 1, 400 000 ml @ 100 mls/hr IV . Q10H [facility] Rx#:[id number] Oral 100 400 Output: Urine 1150 1225 325 Other: Voiding Method Toilet Urinal Urinal # Voids 2 1 1 - Exam GENERAL: The patient is lying in bed and is not in acute distress. NEUROLOGICAL: Higher mental function: The patient is awake, alert, oriented to self, place and time. Patient is following commands. No aphasia and no neglect. Cranial nerves: The pupils are round, equal and reactive to light and accommodation. Visual lopez are full to confrontation throughout. Extraocular movement is intact no nystagmus is noted. Facial sensation is normal to touch throughout. The facial strength is normal throughout. Hearing is normal bilaterally to hand rub. Tongue is midline and moved [id number] without any difficulty. No dysarthria is noted. Shoulder shrug is normal bilaterally. Motor: Gait seemed somewhat unsteady walking but was not leaning toward one side or the other. The strength is left upper extremity is 4- to 5-. Left hand glass cutting machine feeder is 5-. Otherwsise strength is 5/5. Normal tone and bulk. Cerebellum: Normal finger to nose bilaterally. Sensation: Sensation is normal to touch throughout. Reflexes (right/left): 2+ throughout. Plantars are downgoing bilaterally. - Labs CBC & Chem 7: 03/20/20 03:01 03/20/20 03:01 Labs: Abnormal Lab Results - Last 24 Hours (Table) 03/19/20 03/19/20 03/19/20 Range/Units 12:51 12:57 14:51 Sodium 135 L (137-145) mmol/L BUN (9-20) mg/dL Glucose 174 H (74-99) mg/dL POC Glucose (mg/dL) 141 H 151 H (75-99) mg/dL 03/20/20 Range/Units 03:01 Sodium (137-145) mmol/L BUN 8 L (9-20) mg/dL Glucose 110 H (74-99) mg/dL POC Glucose (mg/dL) (75-99) mg/dL Assessment and Plan Assessment: This is a 59-year-old gentleman that presented to the emergency department on 03/18/2020 for multiple episode of left hand/arm weakness and numbness lasting 20 minutes and less. Currently he is back to baseline. Acute ischemic stroke with symptoms of Left sided weakness (predominately left arm with unsteady walking) MRI Brain shows subtle hyperintesity over the posterior right basal ganglia, delgado radiata and I felt small focus on right frontal). Etiology likely small vessel disease. Cannot rule out cardioembolic Uncontrolled hypertension Dyslipidemia Plan: CT of the head is reported as negative unenhanced head CT scan. No change. CT angiography of the head and neck is reported as negative for both. CT of the head repeated on 03/19/2020 was repeated and it was reported as stable exam. No acute intracranial abnormality seen. CT angiography of the head and neck repeated on 03/19/2020 is reported as for the brain there is no large vessel intracranial arterial occlusion, significant stenosis or aneurysm at change is seen. While the neck is reported as possible moderate 50% narrowing proximal right common carotid artery at the level of the thoracic inlet, axial image 23 and coronal image 14 versus artifact. Otherwise, patent carotid and the vertebral arteries of the neck. MRI the brain on 03/19/2020 reported as subtle hyperintensity on diffusion- weighted image with in the posterior right basal ganglia and the delgado radiata may be some acute developing ischemic change. Correlate with the symptoms. Scattered subcortical and deep white matter changes likely on the basis of chronic white matter ischemic changes. I personally reviewed the MRI and I personally agree in addition I felt like there was a small focus over the right frontal that I was able to see on the diffusion-weighted image. Primary team consulted the vascular surgery team. Lipid profile is triglyceride of 126, cholesterol of 205, LDL of 141, HDL 39. 2-D echo: Was reported as left ventricular size, wall thickness and systolic function are normal with ejection fraction of 55%. Left atrium is mildly dilated. I ordered an event monitor. I consulted cardiology for KATHI. Because of the repeated episodes and also a concern was a seizure so an EEG was done on 03/19/2020 and is normal. There are no focal slowing, appropriate discharges or seizure on the EEG. Patient was started on meclizine 25 mg by mouth 1 tablet 3 times a day when necessary for vertigo. Occupation therapy, physical therapy and DIRECTOR OF PRODUCT DEVELOPMENT are consulted by the ED. Continue cardiac monitoring. TSH level: 2.80 which is normal. The goal systolic blood pressure is 180-200 for the next 24 hours. Please do not add any antihypertensive at this time especially since his blood pressure has been the below this range. Currently the patient is on 100cc/hr. We'll defer the rest of the medical management to the primary team. The plan was discussed with the patient and ICU team. Raymundo White M.D. Neuro-hospitalist Time with Patient: Less than 30
--- NOTE | 2020-03-20 12:30 | P.PN ---
Subjective Progress Note Date: 03/20/20 Principal diagnosis: Acute ischemic CVA This is a 59-year-old male, known history of hypertension, known history of vertigo, patient is maintained on multiple medications including metoprolol, Procardia, Aldactone, and Antivert. Yesterday, and while at the gym, around 12 PM, patient was doing some aerobic exercises and swimming, then 5 minutes later, as he was resting, patient felt he was unsteady and almost drunk type of feeling. Had no spinning sensation, no vertigo, no diplopia, no headache. Then he felt a sudden left hand and arm weakness. That episode lasted about 15-20 minutes. However he had 2 further episodes similar to this initial episode one at 20 p.m., and 1 at 4 PM. Continued to have intermittent episodes of left hand and arm weakness and numbness. Patient also felt dizzy and unsteady. Finally patient came to the hospital yesterday. Initial unenhanced CT of the head was negative. Echocardiogram was noted to be normal. Patient was seen today by neurology on consultation, and there was a debate whether to start the patient on TPA or not, as he was about to be started on TPA, his symptoms have improved, hence the urologist loaded the patient with Plavix, and he is recommending mostly treatment with Plavix without using TPA. Patient continues to have weakness of the left upper extremity feels numb and weak, he could raise it but with extreme difficulty. After being evaluated by neurology, he made arrangements for the patient to be transferred to the ICU, and I was asked to see him on consultation. Patient did not receive TPA. This was called off at the last minute. MRI of the brain done today showed subtle hyperintensity on diffusion-weighted imaging within the posterior right basal ganglia and and delgado radiata may be some ischemic change noted. There was also scattered supple cortical and deep white matter changes likely on the basis of chronic white matter ischemic change. Labs on this patient were noted to be relatively unremarkable including normal CBC, normal basic metabolic profile, however he was noted to have elevated LDL of 141, and elevated cholesterol of 205. Reevaluated today on 03/20/2020, patient remains in the ICU, he is now on room air with O2 saturation 97%. IV fluid is at 100 mL per hour. His neurological symptoms have dramatically improved, his left-sided weakness has almost resolved. Minimal left arm numbness persists. Patient is undergoing carotid ultrasound. Patient did not receive TPA, and he was seen by neurology today. The plan is to continue present antiplatelet therapy, and possibly transfer the patient out of the ICU to a regular medical floor with monitor. Labs today were noted to be basically unremarkable. Objective - Vital Signs Vital signs: Vital Signs Temp 98 F 03/20/20 12:00 Pulse 105 H 03/20/20 12:00 Resp 16 03/20/20 12:00 BP 150/88 03/20/20 12:00 Pulse Ox 96 03/20/20 12:00 Intake & Output 03/19/20 03/20/20 03/20/20 18:59 06:59 18:59 Intake Total 800 1500 500 Output Total 1150 1225 600 Balance -350 275 -100 Weight 97.2 kg Intake: IV 300 1100 500 Sodium Chloride 0.9% 1, 300 1100 500 000 ml @ 100 mls/hr IV . Q10H [facility] Rx#:[id number] Intake, IV Titration 400 Amount Sodium Chloride 0.9% 1, 400 000 ml @ 100 mls/hr IV . Q10H [facility] Rx#:[id number] Oral 100 400 Output: Urine 1150 1225 600 Other: Voiding Method Toilet Urinal Urinal # Voids 2 1 1 - Exam Physical Exam: Revealed a 59-year-old pleasant male in no distress. Undergoing carotid Doppler. Head: Atraumatic, normocephalic. HEENT:[Neck is supple.] [No neck masses.] [No thyromegaly.] [No JVD.] Chest: [Clear throughout, no crackles, no rhonchi, no wheezes.] Cardiac Exam: [Normal S1 and S2, no S3 gallop, no murmur.] Abdomen: [Soft, nontender, no megaly, no rebound, no guarding, normal bowel sounds.] Extremities: [No clubbing, no edema, no cyanosis.] Neurological Exam: Alert and oriented 3. Left-sided weakness has resolved. Psychiatric: Normal mood, affect and normal mental status examination. Skin: No rashes. - Labs CBC & Chem 7: 03/20/20 03:01 03/20/20 03:01 Labs: Abnormal Lab Results - Last 24 Hours (Table) 03/19/20 03/19/20 03/19/20 Range/Units 12:51 12:57 14:51 Sodium 135 L (137-145) mmol/L BUN (9-20) mg/dL Glucose 174 H (74-99) mg/dL POC Glucose (mg/dL) 141 H 151 H (75-99) mg/dL 03/20/20 Range/Units 03:01 Sodium (137-145) mmol/L BUN 8 L (9-20) mg/dL Glucose 110 H (74-99) mg/dL POC Glucose (mg/dL) (75-99) mg/dL Assessment and Plan Assessment: Impression: Acute TIA versus CVA, however considering the improvement I believe this was a TIA more so than CVA. History of hypertension. Dyslipidemia. Recommendation: Continue present treatment plan as outlined by neurology. Consider transferring the patient out of the ICU to a monitor bed on selective. Will follow on when necessary basis. Time with Patient: Less than 30
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
--- NOTE | 2020-03-20 15:47 | PN ---
PROGRESS NOTE DATE OF SERVICE: 03/20/2020 This 59-year-old gentleman admitted with recurrent TIA had features of acute stroke at this time. The patient has some weakness of the left upper limb which is flaccid, which is improving at this time. Internal carotid artery stenosis on the right side was suspected and the carotid Doppler was also done. Multiple consultants are following the patient closely. The carotid Doppler showed no hemodynamically significant stenosis in either internal carotid artery. The patient also had brain MRI recommended by Neurology, which showed subtle hyperintensity and diffuse edema in the posterior right basal ganglia and delgado radiata with some acute developing ischemic changes also noted. Patient is being closely monitored at this time. The COVID-19 testing is not available. PAST MEDICAL HISTORY: Reviewed. REVIEW OF SYSTEMS: CARDIOVASCULAR SYSTEM: As mentioned earlier. RESPIRATORY SYSTEM: As mentioned earlier. GI: As mentioned earlier. : No dysuria. NERVOUS SYSTEM: As mentioned earlier. CURRENT MEDICATIONS: Current medications are reviewed and include Xanax. Vitamin C, aspirin, Lipitor, Plavix, heparin, Antivert, alteplase was given. Doses are reviewed. PHYSICAL EXAMINATION: The patient is alert and oriented x3. Pulse 105, blood pressure 150/88, respirations 16, temperature 98 degrees, pulse ox 96% on room air. HEENT: Conjunctivae normal. NECK: No jugular venous distention. CARDIOVASCULAR: S1, S2 muffled. RESPIRATORY: Breath sounds diminished at the bases. No rhonchi, no crackles. ABDOMEN: Soft, nontender. LEGS: No edema, no swelling. NERVOUS SYSTEM: Minimal weakness of the left upper limb. LABS: CBC within normal limits. Sodium 138. Other labs are noted. Cholesterol noted. ASSESSMENT: 1. Acute right basal ganglia and as well as delgado radiata cerebrovascular accident with acute stroke causing left-sided weakness. 2. Ultrasound of carotid showed normal internal carotid artery. 3. Hypertension. 4. Hyperlipidemia. 5. History of renal cyst. 6. History of degenerative joint disease. 7. History of random blood sugar. 8. Hyperlipidemia. 9. Hyponatremia, mild. 10.Increased random blood sugar. RECOMMENDATIONS AND DISCUSSION: This 59-year-old gentleman presented with multiple complex medical issues, we will monitor the patient closely, continue the current medications. Patient has received alteplase. We will continue with antiplatelet and continue neuro checks, neurovascular evaluation and neurovascular workup. Guarded prognosis because of multiple complex medical issues. Further recommendations to follow. We will cut the IV fluid down and permissive hypertension. DVT prophylaxis. Prognosis guarded because of multiple complex medical issues. Further recommendations to follow. Discussed with the patient. Closely follow with multiple consultants including Vascular Surgery, Neurology and Cardiology. TEJA / EVON: [id number] /
[2020-03-21 04:10] LABS: Basophils # (A) 0.1 k/uL (0-0.2); Basophils % (A) 1 %; Eosinophils # (A) 0.1 k/uL (0-0.7); Eosinophils % (A) 2 %; HCT 43.3 % (39.0-53.0); HGB 14.5 gm/dL (13.0-17.5); Lymphocytes # (A) 1.2 k/uL (1.0-4.8); Lymphocytes % (A) 23 %; MCHC 33.4 g/dL (31.0-37.0); MCV 92.7 fL (80.0-100.0); Mean Platelet Volume 7.8; Monocytes # (A) 0.4 k/uL (0-1.0); Monocytes % (A) 7 %; Neutrophils # (A) 3.4 k/uL (1.3-7.7); Neutrophils % (A) 64 %; Platelet Count 184 k/uL (150-450); RBC 4.67 m/uL (4.30-5.90); WBC 5.3 k/uL (3.8-10.6)
[2020-03-21 04:22] LABS: African American GFR (CKD) >90 (>60 ml/min/1.73 sqM); Anion Gap 3 mmol/L; Blood Urea Nitrogen 12 mg/dL (9-20); Calcium 9.2 mg/dL (8.4-10.2); Carbon Dioxide 24 mmol/L (22-30); Chloride 110 mmol/L (98-107); Glucose 98 mg/dL (74-99); Non-African American GFR(CKD) >90 (>60 ml/min/1.73 sqM); Potassium 4.2 mmol/L (3.5-5.1); Sodium 137 mmol/L (137-145)
[2020-03-21] MEDS: SODIUM CHLORIDE 0.9% 1,000 ML IV SCH ×2 (06:58→10:37)
--- NOTE | 2020-03-21 08:21 | PN ---
PROGRESS NOTE Mr. Allen is a 59-year-old male with known history of hypertension, presented with CVA involving the left upper extremity that was waxing and waning. He is feeling better. He still has some difficulty with in his left arm, but better than before. His breathing stable. No chest pain. No dizziness. No palpitation. He continues to be in sinus mechanism. There is no evidence of atrial fibrillation. He continued to be on aspirin once a day, Lipitor 40 mg daily, Plavix 75 mg daily. PHYSICAL EXAMINATION: Blood pressure 133/80 with the heart rate in the 50s. LUNGS: Clear. HEART: Regular rate and rhythm. S1, S2. No S3. No rub. ABDOMEN: Soft, nontender. EXTREMITIES: No edema. LAB DATA: Lab data revealed BUN and creatinine 12 and 0.75, potassium 4.3, hemoglobin 14.5. His cholesterol is 205, LDL 141. I reviewed the data from his hospitalization in [facility] in July of 2016 and at that time he had a normal echocardiogram and no evidence of stress-induced ischemia by nuclear scan. IMPRESSION: 1. Cerebrovascular accident, recurrent. 2. Prior history of hypertension. 3. Hyperlipidemia. RECOMMENDATION: Patient will proceed with transesophageal echocardiogram today to rule out any left atrial appendage thrombus or atrial septal defect or PFO. The procedure as well as the risks and the complications were discussed with the patient who is in full understanding and agreement. Depending on the results of testing, further recommendation will be made. MMODL / IJN: [id number] /
[2020-03-21] MEDS ORDERED: fentaNYL (PF) 50 MCG/ML 2 ML AMP ONE (09:03)
[2020-03-21] MEDS ORDERED: MIDAZOLAM 2 MG/2 ML VIAL ONE (09:03)
--- NOTE | 2020-03-21 10:17 | ECHOT ---
TRANSESOPHAGEAL ECHOCARDIOGRAM INDICATION: Evaluation left atrial appendage, history of CVA. PROCEDURE: After explaining the procedure to the patient, its risks and the complications, his blood pressure, heart rate, O2 saturation was monitored. The throat was sprayed with Cetacaine. He received 2 mg intravenous Versed, 50 mcg intravenous fentanyl. The probe was introduced in the esophagus without difficulty. Images were obtained. Following that, the probe was removed. There was no immediate complication. FINDINGS: Left atrial size is normal. Left atrial appendage is normal. Left ventricular size and systolic function normal. The aortic valve, mitral valve, tricuspid and pulmonic valve are normal. Descending thoracic aorta appears to be normal. No pericardial effusion was noted. Contrast bubble study revealed no evidence of shunting across the interatrial septum. Doppler pulse wave and color Doppler were obtained and revealed a mild mitral with trace tricuspid regurgitation. There was no shunting by color Doppler study. CONCLUSION: 1. Normal left ventricular size and systolic function. 2. Mild mitral and trace to mild tricuspid regurgitation. 3. No evidence of shunting across the interatrial septum. 4. Normal appearance left atrial appendage. 5. Normal appearance of the descending thoracic aorta. MMODL / IJN: [id number] /
[2020-03-21] MEDS: PANTOPRAZOLE 40 MG TABLET PO SCH (10:28)
[2020-03-21] MEDS: ASPIRIN 81 MG PO SCH (10:28)
[2020-03-21] MEDS: HEPARIN SODIUM,PORCINE 5,000 UNIT/ML 1 ML VIAL SQ SCH ×2 (10:29→20:03)
[2020-03-21] MEDS: CLOPIDOGREL 75 MG TAB PO SCH (10:29)
[2020-03-21] MEDS: ATORVASTATIN 40 MG TAB PO SCH (10:29)
[2020-03-21] MEDS: ASCORBIC ACID 500 MG TAB PO SCH (10:29)
--- NOTE | 2020-03-21 11:15 | P.PN ---
Subjective Progress Note Date: 03/21/20 Principal diagnosis: Left-sided weakness, TIA/CVA The patient was seen and evaluated sitting up in bed in ICU. Patient underwent a KATHI this morning. Final results are still pending. He reports no further episodes of left upper or lower extremity weakness. Denies any other focal deficits. No acute changes through the night. States he was up and ambulating yesterday evening. Objective - Vital Signs Vital signs: Vital Signs Temp 98.9 F 03/21/20 08:45 Pulse 66 03/21/20 09:50 Resp 10 L 03/21/20 09:50 BP 140/65 03/21/20 09:50 Pulse Ox 100 03/21/20 09:50 Intake & Output 03/20/20 03/21/20 03/21/20 18:59 06:59 18:59 Intake Total 1050 370 Output Total 1200 225 Balance -150 145 Weight 90.6 kg Intake: IV 1050 20 Sodium Chloride 0.9% 1, 1050 20 000 ml @ 50 mls/hr IV . [facility] Rx#:[id number] Oral 350 Output: Urine 1200 225 Other: Voiding Method Urinal Urinal Toilet # Voids 1 - Exam General appearance: The patient is alert, oriented, in no acute distress. HET: Head is normocephalic and atraumatic. Pupils are equal and reactive. Neck: Supple without lymphadenopathy. Trachea midline. No carotid bruit bilaterally. Heart: S1 S2. Regular rate and rhythm. Lungs: No crackles or wheezes are heard. Abdomen: Soft, nontender, nondistended with bowel sounds. Extremities: Normal skin color and turgor. No cyanosis, rash, ulceration, clubbing, or edema. Radial and pedal pulses are 2/4 bilaterally. Neurological: No focal deficits. Left upper extremity with some mild weakness compared to right. - Labs CBC & Chem 7: 03/21/20 03:20 03/21/20 03:20 Labs: Abnormal Lab Results - Last 24 Hours (Table) 03/21/20 Range/Units 03:20 Chloride 110 H (98-107) mmol/L Assessment and Plan Assessment: 1. Acute ischemic stroke with symptoms of left-sided weakness 2. Carotid stenosis, no significant stenosis bilaterally per carotid duplex 2. Left extremity weakness and numbness 3. Uncontrolled hypertension 4. Dyslipidemia Plan: 1. Right eye duplex ordered and reviewed 2. Appreciate recommendations from neurology and cardiology 3. Optimal blood pressure control 4. KATHI ordered per cardiology, final results pending 5. Echocardiogram ordered 6. Agree with aspirin, Plavix and statin 7. Thank you for this consultation we will sign off at this time. There is no indication for vascular surgical intervention at this time. Patient may follow- up in the office as an outpatient in the future. The impression and plan of care has been dictated as directed. Dr. Hallman I performed a history and examination of this patient, discussed the same with the dictator. I agree with the dictator's note ,documented as a scribe. Any additional findings or plans will be noted.
[2020-03-21 12:13] LABS: Glucose,Whole Blood 115 mg/dL (75-99)
--- NOTE | 2020-03-21 13:53 | PN ---
PROGRESS NOTE DATE OF SERVICE: 03/21/2020 This 59-year-old gentleman admitted with repeat episodes of focal neurologic deficit involving the left upper lower lobe possibly had right-sided stroke, possibly suspected to have stenosis of internal carotid artery in the region of the origin. Vascular Surgery and Neurology following the patient closely. Cardiology seen the patient. A KATHI did not show any acute abnormality. No significant stenosis are noted per carotid duplex. The patient is on dual antiplatelet treatment and statin. Also patient being closely monitored. Brain MRI was personally reviewed. PAST MEDICAL HISTORY: Reviewed. REVIEW OF SYSTEMS: CARDIOVASCULAR SYSTEM: No angina. RESPIRATORY SYSTEM: No cough or hemoptysis. GI: No nausea. : No dysuria. NERVOUS SYSTEM: No numbness, weakness. ALLERGY/IMMUNOLOGY: Asthma. MUSCULOSKELETAL: As mentioned earlier. HEMATOLOGY/ONCOLOGY: No history of anemia. CURRENT MEDICATIONS: Current medications are reviewed and include Tylenol, Xanax, vitamin C, aspirin, Lipitor, Plavix, heparin, Antivert. PHYSICAL EXAMINATION: Patient is alert and oriented x3. Pulse is 84, blood pressure 144/80, respiration 10 , temperature normal, pulse ox 97% on 3 L. HEENT: Conjunctivae normal. NECK: No jugular venous distention. CARDIOVASCULAR: S1, S2 muffled. RESPIRATORY: Breath sounds are diminished at the bases. No rhonchi, no crackles. ABDOMEN: Soft, nontender. LEGS: No edema, no swelling. NERVOUS SYSTEM: Minimal weakness of the left upper limb. LAB INVESTIGATIONS: CBC within normal limits. Sodium 137, potassium 4.2. ASSESSMENT: 1. Acute right basal ganglia as well as delgado radiata cerebrovascular accident with acute stroke causing left-sided weakness. 2. Possible carotid artery stenosis at the origin. 3. Ultrasound of the carotids showed normal internal carotid artery. 4. Hypertension. 5. Hyperlipidemia. 6. History of renal cyst. 7. History of degenerative joint disease. 8. History of random blood sugar. 9. Hyperlipidemia. 10.Hyponatremia, mild. 11.Increased random blood sugar. RECOMMENDATIONS AND DISCUSSION: I recommend to continue current medications, continue symptomatic treatment. Continue the dual antiplatelet. Continue the DVT prophylaxis. Continue with Lipitor. I would also recommend possibly MRA of the system and as well as the neck arteries. Closely follow with Dr. White. Guarded prognosis. Further recommendations to follow. MMODL / IJN: [id number] / JAIMIE
--- NOTE | 2020-03-21 16:01 | MR ---
EXAMINATION TYPE: MR angio neck wo/w con DATE OF EXAM: 03/21/2020 COMPARISON: None HISTORY: Stroke CONTRAST: Standard multiplanar, multisequence MRI departmental protocol utilizing 9 mL intravenous Gadavist navarro olinium contrast. FINDINGS: 3-D [id number] imaging is performed through the carotid bifurcations. No flow gaps are evident. The vertebral arteries appear codominant. Internal and external carotid arteries appear well visualized. No significant flow-limiting stenosis is evident. Source images are reviewed. Vascular s tructures are patent to the skull base. IMPRESSION: No significant flow-limiting stenosis to the carotid bifurcations. Normal flow is within the vertebra l arteries extend into the skull base.
--- NOTE | 2020-03-21 16:13 | P.PN ---
Subjective Progress Note Date: 03/21/20 Patient was seen at bedside and he stated that the his left sided weakness has drastically improved and he denies any further numbness. He said that that he's been able to walk without any assistance and has no further episode of feeling unsteady. He had a transesophageal echocardiogram today in the morning and it's reported as normal left ventricular size and systolic function. No evidence of shunting across the anterior arterial septum. Normal appearance of left atrial appendage. Normal appearance of descending thoracic aorta. Objective - Vital Signs Vital signs: Vital Signs Temp 98.9 F 03/21/20 08:45 Pulse 84 03/21/20 12:00 Resp 10 L 03/21/20 09:50 BP 144/80 03/21/20 12:00 Pulse Ox 97 03/21/20 12:00 Intake & Output 03/20/20 03/21/20 03/21/20 18:59 06:59 18:59 Intake Total 1050 370 50 Output Total 1200 225 Balance -150 145 50 Weight 90.6 kg Intake: IV 1050 20 50 Sodium Chloride 0.9% 1, 1050 20 50 000 ml @ 50 mls/hr IV . Q20H [facility] Rx#:[id number] Oral 350 Output: Urine 1200 225 Other: Voiding Method Urinal Urinal Toilet # Voids 1 - Exam GENERAL: The patient is lying in bed and is not in acute distress. NEUROLOGICAL: Higher mental function: The patient is awake, alert, oriented to self, place and time. Patient is following commands. No aphasia and no neglect. Cranial nerves: The pupils are round, equal and reactive to light and accommodation. Visual lopez are full to confrontation throughout. Extraocular movement is intact no nystagmus is noted. Facial sensation is normal to touch throughout. The facial strength is normal throughout. Hearing is normal bilaterally to hand rub. Tongue is midline and moved [id number] without any difficulty. No dysarthria is noted. Shoulder shrug is normal bilaterally. Motor: Gait is deferred. The strength left hand sail finisher hand is 5-/5. Otherwise 5/5 throughout. Normal tone and bulk. Cerebellum: Normal finger to nose bilaterally. Sensation: Sensation is normal to touch throughout. Reflexes (right/left): 2+ throughout. Plantars are downgoing bilaterally. - Labs CBC & Chem 7: 03/21/20 03:20 03/21/20 03:20 Labs: Abnormal Lab Results - Last 24 Hours (Table) 03/21/20 03/21/20 Range/Units 03:20 12:10 Chloride 110 H (98-107) mmol/L POC Glucose (mg/dL) 115 H (75-99) mg/dL Assessment and Plan Assessment: This is a 59-year-old gentleman that presented to the emergency department on 03/18/2020 for multiple episode of left hand/arm weakness and numbness lasting 20 minutes and less. Currently he is back to baseline. * Acute ischemic stroke with symptoms of Left sided weakness (predominately left arm with unsteady walking)--improving MRI Brain shows subtle hyperintesity over the posterior right basal ganglia, delgado radiata and I felt small focus on right frontal). Etiology likely small vessel disease. Cannot rule out embolic * Uncontrolled hypertension * Dyslipidemia Plan: * CT of the head is reported as negative unenhanced head CT scan. No change. * CT angiography of the head and neck is reported as negative for both. * CT of the head repeated on 03/19/2020 was repeated and it was reported as stable exam. No acute intracranial abnormality seen. * CT angiography of the head and neck repeated on 03/19/2020 is reported as for the brain there is no large vessel intracranial arterial occlusion, significant stenosis or aneurysm at change is seen. While the neck is reported as possible moderate 50% narrowing proximal right common carotid artery at the level of the thoracic inlet, axial image 23 and coronal image 14 versus artifact. Otherwise, patent carotid and the vertebral arteries of the neck. * MRI the brain on 03/19/2020 reported as subtle hyperintensity on diffusion- weighted image with in the posterior right basal ganglia and the delgado radiata may be some acute developing ischemic change. Correlate with the symptoms. Scattered subcortical and deep white matter changes likely on the basis of chronic white matter ischemic changes. I personally reviewed the MRI and I personally agree in addition I felt like there was a small focus over the right frontal that I was able to see on the diffusion-weighted image. * 2-D echo: Was reported as left ventricular size, wall thickness and systolic function are normal with ejection fraction of 55%. Left atrium is mildly dilated. * Transesophageal echocardiogram today in the morning and it's reported as normal left ventricular size and systolic function. No evidence of shunting across the anterior arterial septum. Normal appearance of left atrial appendage. Normal appearance of descending thoracic aorta. * Lipid profile is triglyceride of 126, cholesterol of 205, LDL of 141, HDL 39. * Bilateral carotid duplex is reported as no hemodynamically significant stenosis seen in either internal carotid artery. * Vascular team is on board and a sedated no surgical intervention which I agree. * Currently the patient is on aspirin 81mg daily and Plavix 75mg daily. Patient is to continue dual antiplatelets for 21 days then on 04/09/2020 discontinue Plavix and to continue aspirin indefinitely. Continue 40 mg daily for secondary stroke prophylaxis. * I ordered an event monitor and hopefully down the line he'll have a loop recorder to rule out any arrhythmia such as atrial fibrillation or flutter. * Cardiology is on board. * Because of the repeated episodes and also a concern was a seizure so an EEG was done on 03/19/2020 and is normal. There are no focal slowing, appropriate discharges or seizure on the EEG. * Occupation therapy, physical therapy and PROCESS CONTROLS TECHNICIAN are consulted by the ED. * Continue cardiac monitoring. * TSH level: 2.80 which is normal. * Systolic blood pressure goal is 150-180. Please avoid any hypertensive since the patient is within the parameters. We'll defer the rest of the medical management to the primary team. The plan was discussed with the patient and ICU nurse. Raymundo White M.D. Neuro-hospitalist Time with Patient: Less than 30
[2020-03-21 16:57] LABS: Glucose,Whole Blood 117 mg/dL (75-99)
[2020-03-21 19:50] LABS: Glucose,Whole Blood 97 mg/dL (75-99)
[2020-03-21] MEDS: ACETAMINOPHEN TAB 325 MG TAB PO PRN (20:04)
[2020-03-21] MEDS: MELATONIN 5 MG TABLET PO PRN (20:05)
[2020-03-22] MEDS: ACETAMINOPHEN TAB 325 MG TAB PO PRN ×4 (01:04→23:52)
[2020-03-22 06:25] LABS: Glucose,Whole Blood 97 mg/dL (75-99)
[2020-03-22] MEDS: PANTOPRAZOLE 40 MG TABLET PO SCH (06:33)
[2020-03-22] MEDS: ASPIRIN 81 MG PO SCH (08:49)
[2020-03-22] MEDS: CLOPIDOGREL 75 MG TAB PO SCH (08:49)
[2020-03-22] MEDS: ASCORBIC ACID 500 MG TAB PO SCH (08:49)
[2020-03-22] MEDS: ATORVASTATIN 40 MG TAB PO SCH (08:49)
[2020-03-22] MEDS: HEPARIN SODIUM,PORCINE 5,000 UNIT/ML 1 ML VIAL SQ SCH ×2 (08:50→20:16)
[2020-03-22] MEDS: SODIUM CHLORIDE 0.9% 1,000 ML IV SCH (10:26)
--- NOTE | 2020-03-22 12:00 | PN ---
PROGRESS NOTE Mr. Allen is a 59-year-old male with history of hypertension who presented with evidence of cerebrovascular accident with left upper extremity weakness and numbness. He underwent transesophageal echocardiogram yesterday revealed no evidence of ASD and no intracardiac thrombus. He is feeling well this morning. He had some vague symptoms earlier in the arm that resolve. He denies any dizziness or palpitation. He denies any nausea. He continued to be in sinus mechanism and ambulating without difficulty. He continues to be at this time on aspirin once a day, Plavix 75 mg daily, Lipitor 40 mg daily. He is off his blood pressure medication. His blood pressure has been under good control. PHYSICAL EXAMINATION: Blood pressure 122/70 with the heart rate in the 60s. LUNGS: Clear. HEART: Regular rate and rhythm. S1, S2. No S3. No rub. ABDOMEN: Soft, nontender. EXTREMITIES: No edema. IMPRESSION: 1. Cerebrovascular accident with improvement in his symptoms. 2. Prior history of hypertension, stable off treatment at this time. 3. Hyperlipidemia. RECOMMENDATION: Patient should be able to be discharged home soon and followed as an outpatient to follow if there are any signs of arrhythmia. MMODL / IJN: [id number] /
--- NOTE | 2020-03-22 12:58 | P.PN ---
Subjective Progress Note Date: 03/22/20 She was seen at bedside and he stated that he's doing well. He denies of any new weakness, numbness or visual disturbance. He feels about the same as yesterday. He stated that he is able to walk without any difficulties. Patient had MRA of the neck ordered by primary, and it's reported as no significant flow limiting stenosis of the carotid bifurcation. Normal flow is within the vertebral arteries at extent into the skull base. Objective - Vital Signs Vital signs: Vital Signs Temp 98.0 F 03/22/20 08:00 Pulse 73 03/22/20 08:00 Resp 12 03/22/20 03:49 BP 177/83 03/22/20 08:00 Pulse Ox 98 03/22/20 08:00 Intake & Output 03/21/20 03/22/20 03/22/20 18:59 06:59 18:59 Intake Total 50 240 Output Total 0 Balance 50 240 Weight 91.5 kg Intake: IV 50 Sodium Chloride 0.9% 1, 50 000 ml @ 50 mls/hr IV . Q20H [facility] Rx#:[id number] Oral 240 Output: Urine 0 Stool 0 Other: Voiding Method Toilet Toilet # Voids 1 0 # Bowel Movements 0 - Exam GENERAL: The patient is lying in bed and is not in acute distress. 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 NEUROLOGICAL: Higher mental function: The patient is awake, alert, oriented to self, place and time. Patient is following commands. No aphasia and no neglect. Cranial nerves: The pupils are round, equal and reactive to light and accommodation. Visual lopez are full to confrontation throughout. Extraocular movement is intact no nystagmus is noted. Facial sensation is normal to touch throughout. The facial strength is normal throughout. Hearing is normal bilaterally to hand rub. Tongue is midline and moved [id number] without any difficulty. No dysarthria is noted. Shoulder shrug is normal bilaterally. Motor: Gait is deferred. The strength left hand cone chocolate dipper is 5/5 to maybe 5-/5. Otherwise 5/5 throughout. Normal tone and bulk. Cerebellum: Normal finger to nose bilaterally. Sensation: Sensation is normal to touch throughout. Reflexes (right/left): 2+ throughout. Plantars are downgoing bilaterally. - Labs CBC & Chem 7: 03/21/20 03:20 03/21/20 03:20 Labs: Abnormal Lab Results - Last 24 Hours (Table) 03/21/20 03/21/20 Range/Units 12:10 16:55 POC Glucose (mg/dL) 115 H 117 H (75-99) mg/dL Assessment and Plan Assessment: This is a 59-year-old gentleman that presented to the emergency department on 03/18/2020 for multiple episode of left hand/arm weakness and numbness lasting 20 minutes and less. Currently he is back to baseline. * Acute ischemic stroke with symptoms of Left sided weakness (predominately left arm with unsteady walking)--improving MRI Brain shows subtle hyperintesity over the posterior right basal ganglia, delgado radiata and I felt small focus on right frontal). Etiology likely small vessel disease. Cannot rule out embolic * Uncontrolled hypertension * Dyslipidemia Plan: * CT of the head is reported as negative unenhanced head CT scan. No change. * CT angiography of the head and neck is reported as negative for both. * CT of the head repeated on 03/19/2020 was repeated and it was reported as stable exam. No acute intracranial abnormality seen. * CT angiography of the head and neck repeated on 03/19/2020 is reported as for the brain there is no large vessel intracranial arterial occlusion, significant stenosis or aneurysm at change is seen. While the neck is reporte d as possible moderate 50% narrowing proximal right common carotid artery at the level of the thoracic inlet, axial image 23 and coronal image 14 versus artifact. Otherwise, patent carotid and the vertebral arteries of the neck. * MRI the brain on 03/19/2020 reported as subtle hyperintensity on diffusion- weighted image with in the posterior right basal ganglia and the delgado radiata may be some acute developing ischemic change. Correlate with the symptoms. Scattered subcortical and deep white matter changes likely on the basis of chronic white matter ischemic changes. I personally reviewed the MRI and I personally agree in addition I felt like there was a small focus over the right frontal that I was able to see on the diffusion-weighted image. * Patient had MRA of the neck ordered by primary, and it's reported as no significant flow limiting stenosis of the carotid bifurcation. Normal flow is within the vertebral arteries at extent into the skull base. * 2-D echo: Was reported as left ventricular size, wall thickness and systolic function are normal with ejection fraction of 55%. Left atrium is mildly dilated. * Transesophageal echocardiogram today in the morning and it's reported as normal left ventricular size and systolic function. No evidence of shunting across the anterior arterial septum. Normal appearance of left atrial appendage. Normal appearance of descending thoracic aorta. * Primary team ordered MR angiogram of the chest stat. * Lipid profile is triglyceride of 126, cholesterol of 205, LDL of 141, HDL 39. * Bilateral carotid duplex is reported as no hemodynamically significant stenosis seen in either internal carotid artery. * Vascular team is on board and a sedated no surgical intervention which I agree. * Currently the patient is on aspirin 81mg daily and Plavix 75mg daily. Patient is to continue dual antiplatelets for 21 days then on 04/09/2020 discontinue Plavix and to continue aspirin indefinitely. Continue 40 mg daily for secondary stroke prophylaxis. * I ordered an event monitor and hopefully down the line he'll have a loop recorder to rule out any arrhythmia such as atrial fibrillation or flutter. * Cardiology is on board. * Because of the repeated episodes and also a concern was a seizure so an EEG was done on 03/19/2020 and is normal. There are no focal slowing, appropriate discharges or seizure on the EEG. * Occupation therapy, physical therapy and MANAGING CONSULTANT are consulted by the ED. * Continue cardiac monitoring. * TSH level: 2.80 which is normal. * Systolic blood pressure goal is 120-140. * Patient needs to follow-up with a neurologist within 1 week as an outpatient. We'll defer the rest of the medical management to the primary team and his nurse. From a neurology perspective the there is no further workup. There is no neurology service over the weekend. Please Perfect Serve if needed. Dr. Genao will take over this coming-up Wednesday. Raymundo White M.D. Neuro-hospitalist Time with Patient: Less than 30
--- NOTE | 2020-03-22 14:51 | MR ---
EXAMINATION TYPE: MR angio chest wo/w con DATE OF EXAM: 03/22/2020 COMPARISON: CT neck March 19, 2020 HISTORY: Stroke CONTRAST: Standard multiplanar, multisequence MRI departmental protocol utilizing 9 mL intravenous Gadavist navarro olinium contrast. 3-D reconstructed images created on a workstation and reviewed. Imaging is perform ed of the chest focusing on the thoracic aorta. FINDINGS: Normal three-vessel origin from the aortic arch is present. No significant stenosis. Normal celiac artery and SMA identified. No thoracic aortic aneurysm. Satisfactory arterial flow is identif ied without area of diminished flow to suggest dissection. IMPRESSION: Unremarkable thoracic abdominal aorta.
--- NOTE | 2020-03-22 18:30 | PN ---
PROGRESS NOTE DATE OF SERVICE: 03/22/2020 This 59-year-old gentleman who was admitted with episode of focal neurologic disorder involving the left upper and lower limb is being closely monitored at this time. The patient had extensive evaluation which showed no significant stenosis at this time. The patient is on antiplatelet agents at this time. Multiple consultants are following the patient closely. The patient also had KATHI also. PHYSICAL EXAMINATION: Alert and oriented x3. Pulse is 73, blood pressure 173/83, respiration 12, temperature 98 degrees, pulse ox 98% on room air. HEENT: Conjunctivae normal. Oral mucosa moist. NECK: No jugular venous distention. No lymph node enlargement. CARDIOVASCULAR: S1, S2, muffled. No S3, no S4, RESPIRATORY: Diminished breath sounds at the bases. No rhonchi, no crackles. ABDOMEN: Soft, nontender. LEGS: No edema, no swelling. NERVOUS SYSTEM: Minimal weakness in the left upper and lower limb. LABS: Accu-Cheks noted. ASSESSMENT: 1. Acute right basal ganglia as well as coronal radiata cerebrovascular accident with acute stroke causing the left-sided weakness. 2. Possible carotid artery stenosis at the origin with normal MRI. 3. Ultrasound of the carotid showed normal internal carotid artery. 4. Hypertension. 5. Hyperlipidemia. 6. History of renal cyst. 7. History of degenerative joint disease. 8. History of increased random blood sugar. 9. Hyperlipidemia. 10.Hyponatremia, mild. RECOMMENDATIONS AND DISCUSSION: Recommend to continue current medications. Continue with antiplatelet agents. Closely follow with Neurology and Vascular Surgery. Increase ambulation. Guarded prognosis. Further recommendations to follow. MMODL / IJN: [id number] /
[2020-03-22] MEDS: MELATONIN 5 MG TABLET PO PRN (23:51)
[2020-03-23] MEDS: PANTOPRAZOLE 40 MG TABLET PO SCH (06:19)
[2020-03-23] MEDS: ACETAMINOPHEN TAB 325 MG TAB PO PRN (06:19)
[2020-03-23] MEDS: CLOPIDOGREL 75 MG TAB PO SCH (09:06)
[2020-03-23] MEDS: ATORVASTATIN 40 MG TAB PO SCH (09:06)
[2020-03-23] MEDS: ASPIRIN 81 MG PO SCH (09:06)
[2020-03-23] MEDS: ASCORBIC ACID 500 MG TAB PO SCH (09:06)
[2020-03-23] MEDS: HEPARIN SODIUM,PORCINE 5,000 UNIT/ML 1 ML VIAL SQ SCH (09:06)
[2020-03-23 09:28] VITALS: BP 148/67; PULSE 60; RESP 16; TEMP 98.3
--- NOTE | 2020-03-23 10:05 | P.DS ---
Providers Date of admission: 03/18/20 18:13 Expected date of discharge: 03/23/20 Attending physician: Juan Overton Consults: 03/18/20 18:14 Consult Physician Urgent Consulting Provider: Raymundo White Consult Reason/Comments: tia Do you want consulting provider notified?: Yes 03/19/20 13:24 Consult Physician Routine Consulting Provider: Vicky Acuña Consult Reason/Comments: ICU managment Do you want consulting provider notified?: Yes 03/19/20 13:53 Consult Physician Routine Consulting Provider: Kaia Powers Consult Reason/Comments: abnormal CTA Do you want consulting provider notified?: Yes 03/20/20 09:43 Consult Physician Routine Consulting Provider: Liberty Cassidy Consult Reason/Comments: niraj. Has recurrent episode of TIA then a stroke Do you want consulting provider notified?: Yes Primary care physician: Scott Hernandez MD Hospital Course: Final diagnosis Acute right basal ganglia as well as coronal radiata cerebrovascular accident with acute stroke causing left-sided weakness Possible carotid artery stenosis at the origin with normal MRI Ultrasound of the carotid showed normal internal carotid artery Hypertension Hyperlipidemia History of renal cyst next line history of degenerative joint disease history of increased random blood sugar hyperlipidemia Hyponatremia, mild Discharge disposition Patient is being discharged in a stable condition with guarded prognosis to home. Patient will follow-up with Dr. Scott Hernandez in the outpatient setting upon discharge. Patient will also follow-up with cardiology and neurology. Patient will have an event monitor on discharge and will follow-up with cardiology as instructed. Total time taken is greater than 35 minutes. Hospital course This is a 59-year-old male who was recently admitted with episode of focal neurologic disorder involving the left upper and lower limbs and being closely monitored. Patient was seen and evaluated by cardiology along with neurology. Patient was briefly moved to ICU for close monitoring for CVA. Patient underwent MRA of the aorta which was on remarkable Patient recently underwent NIRAJ which was negative. Brain MRI showed subtle hyperintensity on diffusion weighted imaging within the posterior right basal ganglia and delgado radiata with some acute developing ischemic change and scattered subcortical and deep white matter changes likely on the basis of chronic white matter ischemic change. Patient will have an event monitor upon discharge. Patient also instructed to follow-up with cardiology Dr. Cassidy and neurology in the outpatient setting. Patient was started on aspirin and Plavix along with Lipitor and will continue at this time. Currently no reports of chest pain, shortness of breath, or palpitations. Patient is afebrile. No reports of nausea or vomiting and patient is tolerating diet. Patient is up and walking with some mild left upper extremity weakness although improved from previous and gait is steady upon exam. Patient will be going home with family. Patient will be discharged today. Guarded prognosis On exam vital signs are stable. Temp is 98.3F, pulse is 60, respirations are 16, blood pressure is 148/67, oxygen saturation is 97% on room air. Cardio S1, S2 are muffled. Respiratory system shows diminished breath sounds at the bases with no wheezing or rhonchi noted. Abdomen is soft and nontender. Nervous system shows no focal deficits. Please refer to medication reconciliation sheet for a list of medications. Patient Condition at Discharge: Stable Plan - Discharge Summary New Discharge Prescriptions: New Aspirin 81 mg PO DAILY 30 Days #30 chew Atorvastatin [Lipitor] 40 mg PO DAILY 30 Days #30 tab Clopidogrel [Plavix] 75 mg PO DAILY 30 Days #30 tab Pantoprazole [Protonix] 40 mg PO AC-BRKFST 30 Days #30 tablet. Acetaminophen Tab [Tylenol] 650 mg PO Q6HR PRN tab PRN Reason: Fever And/ Or Pain Continue Ascorbic Acid [Vitamin C] 1,000 mg PO DAILY Meclizine [Antivert] 25 mg PO TID PRN PRN Reason: Vertigo Ondansetron Odt [Zofran ODT] 4 mg PO Q8HR PRN PRN Reason: Vertigo Discontinued Metoprolol Tartrate [Lopressor] 50 mg PO BID Spironolactone [Aldactone] 25 mg PO BID NIFEdipine [Procardia XL] 60 mg PO DAILY Discharge Medication List Ascorbic Acid [Vitamin C] 1,000 mg PO DAILY 03/18/20 [History] Meclizine [Antivert] 25 mg PO TID PRN 03/18/20 [History] Ondansetron Odt [Zofran ODT] 4 mg PO Q8HR PRN 03/18/20 [History] Acetaminophen Tab [Tylenol] 650 mg PO Q6HR PRN tab 03/23/20 [Rx] Aspirin 81 mg PO DAILY 30 Days #30 chew 03/23/20 [Rx] Atorvastatin [Lipitor] 40 mg PO DAILY 30 Days #30 tab 03/23/20 [Rx] Clopidogrel [Plavix] 75 mg PO DAILY 30 Days #30 tab 03/23/20 [Rx] Pantoprazole [Protonix] 40 mg PO AC-BRKFST 30 Days #30 tablet. 03/23/20 [Rx] Follow up Appointment(s)/Referral(s): Liberty Cassidy MD [STAFF PHYSICIAN] - 3 Weeks Scott Hernandez MD [Primary Care Provider] - 1-2 days Ysabel Flower MD [Medical Doctor] - 1 Week (Call office and tell them this is a post hospital, new stroke patient appointment.) Activity/Diet/Wound Care/Special Instructions: Activity Limited until follow-up Continue current diet Continue with aspirin and Plavix and statin Follow-up with primary care provider upon discharge Follow-up with neurology in the outpatient setting Follow-up with cardiology in the outpatient setting Avoid sick contacts for the next 7-10 days Encourage fluids and rest Discharge Disposition: HOME SELF-CARE
--- NOTE | 2020-03-23 11:16 | P.PN ---
Subjective Progress Note Date: 03/23/20 Is a pleasant 59-year-old male patient with history of hypertension who presented with evidence of CVA with left upper extremity weakness and numbness. He underwent transesophageal echocardiogram on the seventh which revealed no evidence of ASD and no intracardiac thrombus. Overall he is feeling a bit be tter today. He continues to have some left-sided weakness but this is improving. He continues to be in sinus mechanism and is ambulating without much difficulty. He continues to feel some unsteadiness spell. Vital signs have been stable. He has had an event monitor placed for outpatient cardiac monitoring. Objective - Vital Signs Vital signs: Vital Signs Temp 98.3 F 03/23/20 09:00 Pulse 60 03/23/20 09:00 Resp 16 03/23/20 09:00 BP 148/67 03/23/20 09:00 Pulse Ox 97 03/23/20 09:00 Intake & Output 03/22/20 03/23/20 03/23/20 18:59 06:59 18:59 Intake Total 960 600 Output Total 0 300 0 Balance 960 300 0 Weight 71.6 kg Intake: Oral 960 600 Output: Urine 0 300 Stool 0 0 0 Other: Voiding Method Toilet Toilet # Voids 2 2 # Bowel Movements 0 - Exam PHYSICAL EXAMINATION: HEENT: Head is atraumatic, normocephalic. Pupils equal, round. Neck is supple. There is no elevated jugular venous pressure. HEART EXAMINATION: Heart sounds regular, S1 and S2 normal. No murmur or gallop heard. CHEST EXAMINATION: Lungs are clear to auscultation and precussion. No chest wall tenderness is noted on palpation or with deep breathing. ABDOMEN: Soft, nontender. Bowel sounds are heard. No organomegaly noted. EXTREMITIES: 2+ peripheral pulses with no evidence of peripheral edema and no calf tenderness noted. NEUROLOGIC patient is awake, alert and oriented x3. Sided weakness noted. . - Labs CBC & Chem 7: 03/21/20 03:20 03/21/20 03:20 Assessment and Plan Assessment: #1 cerebrovascular accident with improvement in symptoms #2 prior history of hypertension, stable off treatment at this time #3 hyperlipidemia Plan: From cardiology's perspective patient is stable for discharge home. He'll be monitored with an event monitor as an outpatient. Plan for follow-up in the office with Dr. Cassidy in about 3 weeks. ENTERPRISE ENGINEER note has been reviewed, I agree with a documented findings and plan of care. Patient was seen and examined.
--- NOTE | 2020-04-30 15:40 | EM ---
EVENT MONITOR THIRTY-DAY EVENT MONITOR: AGE: 59 SEX: Male INDICATIONS: This 30-day event monitor shows: 1. Sinus rhythm and sinus tachycardia. 2. Occasional PACs and PVCs. 3. Occasional brief non-sustained atrial tachycardia. 4. No sustained arrhythmias. MMODL / IJN: [id number] /
== END 2020-03-23 13:06 | disposition home or self-care (01) | DRG 65 ==
LOC: EC 16:03 → 3SCARD 18:13 → OBSVTOIN 18:13 → 3SCARD 18:35 → 2SICU 03-19 15:13 → 3SCARD 03-21 11:39
PROVIDERS: ADMIT Hospitalist; ATTEND Hospitalist
PROC: B246ZZ4 Ultrasonography of Right and Left Heart, Transesophageal (ICD-10-PCS; principal; 2020-03-21)
DX: I63.9 Cerebral infarction, unspecified (principal); E87.1 Hypo-osmolality and hyponatremia; G81.92 Hemiplegia, unspecified affecting left dominant side; I65.21 Occlusion and stenosis of right carotid artery; I73.9 Peripheral vascular disease, unspecified; I49.3 Ventricular premature depolarization; I10 Essential (primary) hypertension; M19.90 Unspecified osteoarthritis, unspecified site; I08.1 Rheumatic disorders of both mitral and tricuspid valves; E78.5 Hyperlipidemia, unspecified; E78.00 Pure hypercholesterolemia, unspecified; Z79.899 Other long term (current) drug therapy; Z79.02 Long term (current) use of antithrombotics/antiplatelets; Z90.89 Acquired absence of other organs; Z98.890 Other specified postprocedural states; Z20.822 Contact with and (suspected) exposure to COVID-19
CPT/HCPCS: 36415; 70450; 70496; 70498; 70549; 70551; 71046; 71555; 80048; 80053; 80061; 84443; 84484; 85025; 85610; 85730; 87635; 93005; 93270; 93306; 93312; 93320; 93325; 93880; 95816; 96360; 96361; 99285

== ENCOUNTER 2020-03-23 19:23 | Emergency (ER) | payer OTHER ==
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
[2020-03-23 20:06] LABS: Basophils # (A) 0.1 k/uL (0-0.2); Basophils % (A) 1 %; Eosinophils % (A) 1 %; HCT 46.8 % (39.0-53.0); HGB 15.9 gm/dL (13.0-17.5); Lymphocytes # (A) 1.3 k/uL (1.0-4.8); Lymphocytes % (A) 24 %; MCHC 34.1 g/dL (31.0-37.0); MCV 91.2 fL (80.0-100.0); Mean Platelet Volume 7.8; Monocytes # (A) 0.5 k/uL (0-1.0); Monocytes % (A) 9 %; Neutrophils # (A) 3.5 k/uL (1.3-7.7); Neutrophils % (A) 63 %; Platelet Count 194 k/uL (150-450); RBC 5.14 m/uL (4.30-5.90); RDW 13.2 % (11.5-15.5); WBC 5.5 k/uL (3.8-10.6)
[2020-03-23 20:13] LABS: ALT 63 U/L (4-49); AST 45 U/L (17-59); African American GFR (CKD) >90 (>60 ml/min/1.73 sqM); Albumin 4.5 g/dL (3.5-5.0); Alkaline Phosphatase 68 U/L (38-126); Anion Gap 6 mmol/L; Blood Urea Nitrogen 14 mg/dL (9-20); Calcium 9.7 mg/dL (8.4-10.2); Carbon Dioxide 27 mmol/L (22-30); Chloride 107 mmol/L (98-107); Glucose 125 mg/dL (74-99); Non-African American GFR(CKD) >90 (>60 ml/min/1.73 sqM); Potassium 3.4 mmol/L (3.5-5.1); Sodium 140 mmol/L (137-145); Total Bilirubin 0.6 mg/dL (0.2-1.3); Total Protein 7.4 g/dL (6.3-8.2)
[2020-03-23 20:15] LABS: INR 0.9 (<1.2); Partial Thromboplastin Time 23.2 sec (22.0-30.0); Prothrombin Time 9.9 sec (9.0-12.0)
--- NOTE | 2020-03-23 20:18 | CT ---
EXAMINATION TYPE: CT brain wo con for TPA DATE OF EXAM: 03/23/2020 COMPARISON: HISTORY: Neuro deficits, LT hand numbness, multiple TIAs last week. CT DLP: 1160.8 mGycm Automated exposure control for dose reduction was used. There is a 2.5 x 1.5 cm area of hypodensity in the right internal capsule that appears new compared t o recent exam and consistent with acute infarct. There is no midline shift. There is no sign of intra cranial hemorrhage. Calvarium is intact. Skull base is intact. IMPRESSION: Large acute right internal capsule infarct.
--- NOTE | 2020-03-23 20:21 | XR ---
EXAMINATION TYPE: XR chest 2V DATE OF EXAM: 03/23/2020 COMPARISON: 03/18/2020 HISTORY: 2 views TECHNIQUE: FINDINGS: Heart and mediastinum are normal. Lungs are clear. Diaphragm is normal. Bony thorax appears normal. There are chest leads. IMPRESSION: Normal chest. No change.
[2020-03-23] MEDS ORDERED: ASPIRIN 325 MG TAB PO STA (20:47)
--- NOTE | 2020-03-23 20:59 | CT ---
EXAMINATION TYPE: CT angio head neck DATE OF EXAM: 03/23/2020 COMPARISON: 03/19/2020 HISTORY: Neuro deficits, LT hand numbness, multiple TIAs last week CT DLP: 836.2 mGycm Automated exposure control for dose reduction was used. CONTRAST: Performed with IV Contrast, patient injected with 65 mL of Isovue 370. Images obtained from the aortic arch to the vertex of the brain with IV contrast and 3-D post process ed images. There is normal branching pattern of the great vessels on the aortic arch. There is arterial flow in both subclavian arteries. There is arterial flow in the common internal and external carotid arteries bilaterally. There is no significant plaque formation at the carotid artery bifurcations. There is a rterial flow in both vertebral arteries. There is arterial flow in the vertebrobasilar artery system. There is no evidence of carotid or vertebral artery aneurysm or dissection. There is normal contrast opacification of the jugular veins. There is arterial flow in the anterior middle and posterior cerebral arteries. There is normal contra st opacification of the venous sinuses. I see no evidence of intracranial arterial stenosis. There is no mass effect. There is no sign of intracranial aneurysm or neovascularity. There is oval-shaped 2 cm area of hypodensity right internal capsule consistent with lacunar infarct that is a change compar ed to recent CT scan of 03/19/2020. IMPRESSION: Negative CT angiogram of the neck. Negative CT angiogram of the brain. Acute infarct right internal c apsule.
[2020-03-23 21:10] VITALS: RESP 16
[2020-03-23 21:23] VITALS: BP 157/92; PULSE 97; TEMP 98.3
== END 2020-03-23 21:38 | disposition other institution (70) ==
LOC: EC 19:23
DX: I63.9 Cerebral infarction, unspecified (principal); R29.701 NIHSS score 1; R00.0 Tachycardia, unspecified; I45.10 Unspecified right bundle-branch block; I10 Essential (primary) hypertension; Z79.899 Other long term (current) drug therapy; Z79.02 Long term (current) use of antithrombotics/antiplatelets
CPT/HCPCS: 36415; 93005; 80053; 84484; 85025; 85610; 85730; 71046; 70496; 70450; 70498; 99285; Q9967

== ENCOUNTER 2020-03-28 19:49 | Observation (INO) | payer OTHER ==
[2020-03-28 20:17] VITALS: RESP 18
[2020-03-28 20:59] LABS: Basophils # (A) 0.1 k/uL (0-0.2); Basophils % (A) 1 %; Eosinophils # (A) 0.1 k/uL (0-0.7); Eosinophils % (A) 2 %; HCT 44.5 % (39.0-53.0); HGB 15.1 gm/dL (13.0-17.5); Lymphocytes # (A) 1.3 k/uL (1.0-4.8); Lymphocytes % (A) 19 %; MCH 31.1 pg (25.0-35.0); MCV 91.5 fL (80.0-100.0); Mean Platelet Volume 7.6; Monocytes # (A) 0.5 k/uL (0-1.0); Monocytes % (A) 8 %; Neutrophils # (A) 4.7 k/uL (1.3-7.7); Neutrophils % (A) 70 %; Platelet Count 212 k/uL (150-450); RBC 4.87 m/uL (4.30-5.90); WBC 6.8 k/uL (3.8-10.6)
[2020-03-28 21:04] LABS: INR 0.9 (<1.2); Prothrombin Time 9.6 sec (9.0-12.0)
[2020-03-28 21:06] LABS: ALT 51 U/L (4-49); AST 28 U/L (17-59); African American GFR (CKD) >90 (>60 ml/min/1.73 sqM); Albumin 4.2 g/dL (3.5-5.0); Alkaline Phosphatase 77 U/L (38-126); Anion Gap 6 mmol/L; Blood Urea Nitrogen 17 mg/dL (9-20); Calcium 9.8 mg/dL (8.4-10.2); Carbon Dioxide 26 mmol/L (22-30); Chloride 109 mmol/L (98-107); Glucose 127 mg/dL (74-99); Non-African American GFR(CKD) 89 (>60 ml/min/1.73 sqM); Potassium 3.8 mmol/L (3.5-5.1); Sodium 141 mmol/L (137-145); Total Bilirubin 0.5 mg/dL (0.2-1.3)
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
--- NOTE | 2020-03-28 22:53 | ED ---
Medical Decision Making - Medical Decision Making Patient had second thoughts. He requested to be admitted. Patient states that he does not feel comfortable being discharged if case he has another TIA. Patient has no strokelike symptoms at the moment. He seems to be taken all the appropriate medications. The patient that observation is consultation. - Lab Data Result diagrams: 03/28/20 20:37 03/28/20 20:37 Lab Results 03/28/20 03/28/20 03/28/20 Range/Units 20:37 20:37 20:37 WBC 6.8 (3.8-10.6) k/uL RBC 4.87 (4.30-5.90) m/uL Hgb 15.1 (13.0-17.5) gm/dL Hct 44.5 (39.0-53.0) % MCV 91.5 (80.0-100.0) fL MCH 31.1 (25.0-35.0) pg MCHC 34.0 (31.0-37.0) g/dL RDW 13.0 (11.5-15.5) % Plt Count 212 (150-450) k/uL MPV 7.6 Neutrophils % 70 % Lymphocytes % 19 % Monocytes % 8 % Eosinophils % 2 % Basophils % 1 % Neutrophils # 4.7 (1.3-7.7) k/uL Lymphocytes # 1.3 (1.0-4.8) k/uL Monocytes # 0.5 (0-1.0) k/uL Eosinophils # 0.1 (0-0.7) k/uL Basophils # 0.1 (0-0.2) k/uL PT 9.6 (9.0-12.0) sec INR 0.9 (<1.2) Sodium 141 (137-145) mmol/L Potassium 3.8 (3.5-5.1) mmol/L Chloride 109 H (98-107) mmol/L Carbon Dioxide 26 (22-30) mmol/L Anion Gap 6 mmol/L BUN 17 (9-20) mg/dL Creatinine 0.93 (0.66-1.25) mg/dL Est GFR (CKD-EPI)AfAm >90 (>60 ml/min/1.73 sqM) Est GFR (CKD-EPI)NonAf 89 (>60 ml/min/1.73 sqM) Glucose 127 H (74-99) mg/dL Plasma Lactic Acid Joseph (0.7-2.0) mmol/L Calcium 9.8 (8.4-10.2) mg/dL Total Bilirubin 0.5 (0.2-1.3) mg/dL AST 28 (17-59) U/L ALT 51 H (4-49) U/L Alkaline Phosphatase 77 (38-126) U/L Troponin I (0.000-0.034) ng/mL Total Protein 7.0 (6.3-8.2) g/dL Albumin 4.2 (3.5-5.0) g/dL 03/28/20 03/28/20 Range/Units 20:37 20:37 WBC (3.8-10.6) k/uL RBC (4.30-5.90) m/uL Hgb (13.0-17.5) gm/dL Hct (39.0-53.0) % MCV (80.0-100.0) fL MCH (25.0-35.0) pg MCHC (31.0-37.0) g/dL RDW (11.5-15.5) % Plt Count (150-450) k/uL MPV Neutrophils % % Lymphocytes % % Monocytes % % Eosinophils % % Basophils % % Neutrophils # (1.3-7.7) k/uL Lymphocytes # (1.0-4.8) k/uL Monocytes # (0-1.0) k/uL Eosinophils # (0-0.7) k/uL Basophils # (0-0.2) k/uL PT (9.0-12.0) sec INR (<1.2) Sodium (137-145) mmol/L Potassium (3.5-5.1) mmol/L Chloride (98-107) mmol/L Carbon Dioxide (22-30) mmol/L Anion Gap mmol/L BUN (9-20) mg/dL Creatinine (0.66-1.25) mg/dL Est GFR (CKD-EPI)AfAm (>60 ml/min/1.73 sqM) Est GFR (CKD-EPI)NonAf (>60 ml/min/1.73 sqM) Glucose (74-99) mg/dL Plasma Lactic Acid Joseph 1.5 (0.7-2.0) mmol/L Calcium (8.4-10.2) mg/dL Total Bilirubin (0.2-1.3) mg/dL AST (17-59) U/L ALT (4-49) U/L Alkaline Phosphatase (38-126) U/L Troponin I <0.012 (0.000-0.034) ng/mL Total Protein (6.3-8.2) g/dL Albumin (3.5-5.0) g/dL Disposition Clinical Impression: Weakness Disposition: ADMITTED IP TO THIS HOSP Condition: Good Instructions (If sedation given, give patient instructions): Dizziness (ED) Referrals: Scott Hernandez MD [Primary Care Provider] - 1-2 days
[2020-03-28] MEDS ORDERED: NALOXONE 0.4 MG/ML 1 ML VIAL IV PRN (22:56)
[2020-03-28] MEDS ORDERED: diazePAM 5 MG TAB PO STA (23:17)
[2020-03-29 08:34] VITALS: TEMP 97.1
[2020-03-29] MEDS ORDERED: ONDANSETRON ODT 4 MG TAB PO PRN (12:40)
[2020-03-29] MEDS ORDERED: ACETAMINOPHEN TAB 325 MG TAB PO PRN (12:40)
[2020-03-29] MEDS ORDERED: PANTOPRAZOLE 40 MG TABLET PO PRN (12:40)
[2020-03-29] MEDS ORDERED: MECLIZINE 25 MG TAB PO PRN (12:40)
[2020-03-29] MEDS ORDERED: SPIRONOLACTONE 25 MG TAB PO PRN (12:40)
[2020-03-29] MEDS ORDERED: ASPIRIN 81 MG PO SCH (12:45)
[2020-03-29] MEDS ORDERED: CLOPIDOGREL 75 MG TAB PO SCH (12:45)
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
[2020-03-29 14:33] VITALS: BP 132/67; PULSE 70
[2020-03-29] MEDS ORDERED: TICAGRELOR 90 MG TAB PO STA (16:42)
--- NOTE | 2020-03-29 17:00 | P.DS ---
Providers Date of admission: 03/28/20 22:57 Attending physician: Arnav Alston Consults: 03/28/20 22:56 Consult Physician Routine Consulting Provider: Trevor Genao Consult Reason/Comments: weakness Do you want consulting provider notified?: Yes Primary care physician: Scott Hernandez MD Hospital Course: Patient was a valid by neurology and cleared by neurology and patient will be discharged today neurology is recommending to increase the statin from 40 mg to 80 mg and patient to be started on brillinta of Plavix and patient will be continued on Brillinta and aspirin for 3 weeks followed by Brilinta only Patient Condition at Discharge: Good Plan - Discharge Summary New Discharge Prescriptions: Continue Ascorbic Acid [Vitamin C] 1,000 mg PO DAILY Meclizine [Antivert] 25 mg PO TID PRN PRN Reason: Vertigo Ondansetron Odt [Zofran ODT] 4 mg PO Q8HR PRN PRN Reason: Vertigo Aspirin 81 mg PO DAILY 30 Days #30 chew Acetaminophen Tab [Tylenol] 650 mg PO Q6HR PRN tab PRN Reason: Fever And/ Or Pain Spironolactone [Aldactone] 25 mg PO BID PRN PRN Reason: VERY HIGH BP Metoprolol Tartrate [Lopressor] 50 mg PO BID Diazepam [Valium] 2.5 mg PO HS PRN PRN Reason: SLEEP Pantoprazole [Protonix] 40 mg PO AC-BRKFST PRN PRN Reason: GI UPSET NIFEdipine XL [Procardia XL] 60 mg PO HS Changed Atorvastatin [Lipitor] 80 mg PO HS #0 Discontinued Clopidogrel [Plavix] 75 mg PO DAILY 30 Days #30 tab Discharge Medication List Ascorbic Acid [Vitamin C] 1,000 mg PO DAILY 03/18/20 [History] Meclizine [Antivert] 25 mg PO TID PRN 03/18/20 [History] Ondansetron Odt [Zofran ODT] 4 mg PO Q8HR PRN 03/18/20 [History] Acetaminophen Tab [Tylenol] 650 mg PO Q6HR PRN tab 03/23/20 [Rx] Aspirin 81 mg PO DAILY 30 Days #30 chew 03/23/20 [Rx] Diazepam [Valium] 2.5 mg PO HS PRN 03/28/20 [History] Metoprolol Tartrate [Lopressor] 50 mg PO BID 03/28/20 [History] NIFEdipine XL [Procardia XL] 60 mg PO HS 03/28/20 [History] Pantoprazole [Protonix] 40 mg PO AC-BRKFST PRN 03/28/20 [History] Spironolactone [Aldactone] 25 mg PO BID PRN 03/28/20 [History] Atorvastatin [Lipitor] 80 mg PO HS #0 03/29/20 [Rx] Follow up Appointment(s)/Referral(s): Scott Hernandez MD [Primary Care Provider] - 3 Days Patient Instructions/Handouts: Dizziness (ED) Discharge Disposition: HOME SELF-CARE
--- NOTE | 2020-03-29 17:47 | CT ---
EXAMINATION TYPE: CT brain wo con DATE OF EXAM: 03/29/2020 COMPARISON: 03/23/2020. HISTORY: Recent TIAs and stroke. Some residual left sided weakness. CT DLP: 1099.4 mGycm Automated exposure control for dose reduction was used. FINDINGS: There is no acute intracranial hemorrhage, midline shift or hydrocephalus. The white matter is grossl y preserved. The paranasal sinuses and mastoid air cells are adequately aerated. There is interval re solution of vasogenic edema within the right basal ganglia. IMPRESSION: NO ACUTE INTRACRANIAL ABNORMALITY. RESOLUTION OF EDEMA RELATED TO PRIOR RIGHT LACUNAR INFARCT. NO SIGNIFICANT ENCEPHALOMALACIA SEEN.
[2020-03-29] MEDS ORDERED: METOPROLOL TARTRATE 50 MG TAB PO SCH (21:00)
[2020-03-29] MEDS ORDERED: ATORVASTATIN 40 MG TAB PO SCH (21:00)
[2020-03-29 21:15] LABS: Hemoglobin A1C 5.6 % (4.0-6.0)
[2020-03-30] MEDS ORDERED: ASCORBIC ACID 500 MG TAB PO SCH (09:00)
== END 2020-03-29 19:07 | disposition home or self-care (01) ==
LOC: EC 19:49 → 1SOBS 22:57
PROVIDERS: ADMIT Internal Medicine; ATTEND Internal Medicine
DX: R53.1 Weakness (principal); I69.959 Hemiplegia and hemiparesis following unspecified cerebrovascular disease affecting unspecified side; I10 Essential (primary) hypertension; R42 Dizziness and giddiness; R53.83 Other fatigue; E78.5 Hyperlipidemia, unspecified; R51.9 Headache, unspecified; I08.1 Rheumatic disorders of both mitral and tricuspid valves; K21.9 Gastro-esophageal reflux disease without esophagitis; N28.1 Cyst of kidney, acquired; Z79.82 Long term (current) use of aspirin; Z79.02 Long term (current) use of antithrombotics/antiplatelets; Z79.899 Other long term (current) drug therapy; Z87.828 Personal history of other (healed) physical injury and trauma; Z89.022 Acquired absence of left finger(s); Z91.81 History of falling
CPT/HCPCS: 99285; 36415; 93005; 80053; 83605; 84484; 85025; 85610; 83036; 70450; G0378 ×2

== ENCOUNTER → 2020-05-14 | Outpatient (CLI) | payer OTHER ==
[2020-05-14 15:57] LABS: African American GFR (CKD) 106.5 (60.0-200.0); Albumin 4.9 g/dL (3.80-4.90); Albumin/Globulin Ratio 1.81 (1.60-3.17); Anion Gap 7.5 mmol/L (4.00-12.00); BUN/Creat Ratio 16.67 Ratio (12.00-20.00); Calcium 9.7 mg/dL (8.7-10.3); Carbon Dioxide 30.5 mmol/L (21.6-31.8); Chol/HDL Ratio 3.75; Globulin 2.7 g/dL (1.6-3.3); LDL Cholesterol,Calculated 56.8 mg/dL (0.0-131.0); Non-African American GFR(CKD) 91.9 (60.0-200.0); Potassium 3.5 mmol/L (3.5-5.5); Total Protein 7.6 g/dL (6.2-8.2); VLDL Calculation 20.2 mg/dL (5.00-40.00)
== END | disposition home or self-care (01) ==
LOC: LABWHC1 08:29
PROVIDERS: ATTEND Internal Medicine Interventional Cardiology
DX: E78.2 Mixed hyperlipidemia (principal)
CPT/HCPCS: 36415; 80053; 80061

== ENCOUNTER → 2020-05-28 | Outpatient (CLI) | payer OTHER ==
--- NOTE | 2020-05-28 13:45 | US ---
EXAMINATION TYPE: US kidneys/renal and bladder DATE OF EXAM: 05/28/2020 COMPARISON: US CLINICAL HISTORY: N28.1 cyst of kidney. F/U cysts on kidneys EXAM MEASUREMENTS: Right Kidney: 12.4 x 6.3 x 5.4 cm Left Kidney: 11.8 x 5.1 x 5.2 cm Right Kidney: Simple cysts upper pole= 5.1 x 4.7 x 5.1 cm, and lower pole= 2.0 x 3.1 x 2.6 cm, both e ssentially unchanged from previous Left Kidney: Possible parapelvic cyst mid= 1.3 x 1.8 x 1.2 cm, and 0.8 cm echogenic foci medial, both essentially unchanged from previous Bladder: Probable small posterior wall diverticuli Bilateral Jets seen: Yes IMPRESSION: 1. Stable echogenic foci within the left kidney. 2. Lower pole left renal cyst. 3. Upper pole right renal simple cyst
== END ==
LOC: RADUSWWP 12:55
PROVIDERS: ATTEND Family Medicine
DX: N28.1 Cyst of kidney, acquired (principal); R93.422 Abnormal radiologic findings on diagnostic imaging of left kidney
CPT/HCPCS: 76770

== ENCOUNTER → 2020-08-01 | Outpatient (CLI) | payer OTHER ==
--- NOTE | 2020-08-01 10:01 | ECHOF ---
Referral Reason:R01.1 Cardiac murmur MEASUREMENTS -------- HEIGHT: 177.8 cm WEIGHT: 92.1 kg BP: RVIDd: 3.6 cm (< 3.3) IVSd: 1.1 cm (0.6 - 1.1) LVIDd: 4.4 cm (3.9 - 5.3) LVPWd: 1.1 cm (0.6 - 1.1) IVSs: 1.6 cm LVIDs: 3.0 cm LVPWs: 1.9 cm LAESV Index (A-L): 29.13 ml/m Ao Diam: 3.2 cm (2.0 - 3.7) AV Cusp: 2.1 cm (1.5 - 2.6) MV EXCURSION: 19.423 mm (> 18.000) MV EF SLOPE: 109 mm/s (70 - 150) EPSS: 0.8 cm MV E Boris: 0.80 m/s MV DecT: 263 ms MV A Boris: 0.66 m/s MV E/A Ratio: 1.21 RAP: 5.00 mmHg RVSP: 21.57 mmHg FINDINGS -------- Sinus rhythm. This was a technically good study. The left ventricular size is normal. Left ventricular wall thickness is normal. Overall left vent ricular systolic function is normal with, an EF between 55 - 60 %. The diastolic filling pattern is normal for the age of the patient 10.44. The right ventricle is mildly enlarged. LA is midly dilated 29-33ml/m2. The right atrial size is normal. Interatrial and interventricular septum intact. The aortic valve is trileaflet and appears structurally normal. There is no evidence of aortic regu rgitation. There is no evidence of aortic stenosis. Mild mitral regurgitation is present. Mild tricuspid regurgitation present. There is no evidence of pulmonary hypertension. The right v entricular systolic pressure, as measured by Doppler, is 21.57mmHg. Trace/mild (physiologic) pulmonic regurgitation. The aortic root size is normal. IVC Not well visulized. There is no pericardial effusion. CONCLUSIONS -------- 1. The left ventricular size is normal. 2. Left ventricular wall thickness is normal. 3. Overall left ventricular systolic function is normal with, an EF between 55 - 60 %. 4. The diastolic filling pattern is normal for the age of the patient 10.44 5. The right ventricle is mildly enlarged. 6. LA is midly dilated 29-33ml/m2. 7. Mild mitral regurgitation is present. 8. Mild tricuspid regurgitation present. 9. Trace/mild (physiologic) pulmonic regurgitation. CLOTHING PATTERN PREPARER: Carmen Cortez RDCS
== END | disposition home or self-care (01) ==
LOC: RADECHMAIN 08:30
PROVIDERS: ATTEND Family Medicine
DX: I08.8 Other rheumatic multiple valve diseases (principal)
CPT/HCPCS: 36415; 86769; 93306

== ENCOUNTER → 2020-08-16 | Outpatient (CLI) | payer OTHER ==
[2020-08-17 04:11] LABS: African American GFR (CKD) 82.9 (60.0-200.0); Albumin 4.9 g/dL (3.80-4.90); Albumin/Globulin Ratio 1.88 (1.60-3.17); Anion Gap 15.2 mmol/L (4.00-12.00); BUN/Creat Ratio 17.27 Ratio (12.00-20.00); Calcium 10.2 mg/dL (8.7-10.3); Carbon Dioxide 22.8 mmol/L (21.6-31.8); Chol/HDL Ratio 3.29; Globulin 2.6 g/dL (1.6-3.3); Non-African American GFR(CKD) 71.6 (60.0-200.0); Potassium 3.6 mmol/L (3.5-5.5); Total Protein 7.5 g/dL (6.2-8.2)
== END | disposition home or self-care (01) ==
LOC: LABWHC1 08:04
PROVIDERS: ATTEND Internal Medicine Interventional Cardiology
DX: E78.2 Mixed hyperlipidemia (principal)
CPT/HCPCS: 36415; 80053; 80061

== ENCOUNTER → 2020-09-05 | Outpatient (CLI) | payer OTHER ==
[2020-09-05 15:17] LABS: Basophils # (A) 0.02 X 10*3/uL (0.00-0.10); Basophils % (A) 0.4 %; Eosinophils # (A) 0.04 X 10*3/uL (0.04-0.35); Eosinophils % (A) 0.7 %; HCT 46.5 % (39.6-50.0); Lymphocytes # (A) 1.26 X 10*3/uL (0.90-5.00); Lymphocytes % (A) 23.3 %; MCH 29.8 pg (27.0-32.0); MCHC 32.3 g/dL (32.0-37.0); MCV 92.3 fL (80.0-97.0); Mean Platelet Volume 10.2 fL (9.5-12.2); Monocytes # (A) 0.57 X 10*3/uL (0.20-1.00); Monocytes % (A) 10.5 %; Neutrophils # (A) 3.48 X 10*3/uL (1.80-7.70); Neutrophils % (A) 64.4 %; Platelet Count 254 X 10*3/uL (140-440); RBC 5.04 X 10*6/uL (4.40-5.60); WBC 5.41 X 10*3/uL (4.50-10.00)
[2020-09-05 17:14] LABS: African American GFR (CKD) 93.1 (60.0-200.0); Non-African American GFR(CKD) 80.3 (60.0-200.0); Potassium 3.9 mmol/L (3.5-5.5)
== END | disposition home or self-care (01) ==
LOC: LABWHC1 08:40
PROVIDERS: ATTEND Internal Medicine Interventional Cardiology
DX: R53.83 Other fatigue (principal)
CPT/HCPCS: 36415; 80051; 82306; 82565; 82607; 84520; 85025

== ENCOUNTER 2020-10-09 20:43 | Emergency (ER) | payer OTHER ==
[2020-10-09] MEDS ORDERED: SODIUM CHLORIDE 0.9% 1,000 ML IV STA (21:22)
[2020-10-09 21:57] LABS: Basophils # (A) 0.1 k/uL (0-0.2); Basophils % (A) 1 %; Eosinophils # (A) 0.1 k/uL (0-0.7); Eosinophils % (A) 1 %; HCT 47.9 % (39.0-53.0); HGB 15.7 gm/dL (13.0-17.5); Lymphocytes # (A) 1.3 k/uL (1.0-4.8); Lymphocytes % (A) 19 %; MCH 29.9 pg (25.0-35.0); MCHC 32.7 g/dL (31.0-37.0); MCV 91.6 fL (80.0-100.0); Mean Platelet Volume 7.9; Monocytes # (A) 0.6 k/uL (0-1.0); Monocytes % (A) 8 %; Neutrophils # (A) 4.9 k/uL (1.3-7.7); Neutrophils % (A) 70 %; Platelet Count 235 k/uL (150-450); RBC 5.23 m/uL (4.30-5.90); RDW 12.9 % (11.5-15.5)
[2020-10-09 22:07] LABS: Albumin 4.5 g/dL (3.5-5.0); Calcium 10.1 mg/dL (8.4-10.2); Magnesium 2.2 mg/dL (1.6-2.3); Total Bilirubin 0.4 mg/dL (0.2-1.3); Total Protein 7.2 g/dL (6.3-8.2)
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
[2020-10-09 22:47] LABS: Appearance,Urine Clear (Clear); Bilirubin,Urine Negative (Negative); Blood,Urine Negative (Negative); Color,Urine Light Yellow; Glucose,Urine (UA) Negative (Negative); Ketones,Urine Negative (Negative); Leukocyte Esterase,Urine Negative (Negative); Nitrite,Urine Negative (Negative); PH, Urine 6.5 (5.0-8.0); Protein,Urine Negative (Negative); Specific Gravity,Urine 1.018 (1.001-1.035); Urobilinogen,Urine <2.0 mg/dL (<2.0)
[2020-10-09 23:12] VITALS: RESP 16; TEMP 98.1
[2020-10-09 23:30] LABS: Amphetamine Screen,Urine Not Detected (NotDetected); Cocaine Screen,Urine Not Detected (NotDetected); Opiate Screen,Urine Not Detected (NotDetected); Phencyclidine Screen,Urine Not Detected (NotDetected); Urn Cannabinoid Scrn Not Detected (NotDetected)
[2020-10-09 23:31] LABS: Barbiturate Screen,Urine Not Detected (NotDetected); Benzodiazepines Screen,Urine Not Detected (NotDetected); Methadone Screen, Urine Not Detected (NotDetected); Oxycodone Screen, Urine Not Detected (NotDetected); Tricyclic Antidepressant,Urine Not Detected (NotDetected)
[2020-10-10 00:25] VITALS: BP 152/96; PULSE 66
== END 2020-10-10 00:25 | disposition home or self-care (01) ==
LOC: EC 20:43
DX: E86.0 Dehydration (principal); R73.9 Hyperglycemia, unspecified; I10 Essential (primary) hypertension; Z86.73 Personal history of transient ischemic attack (TIA), and cerebral infarction without residual deficits; Z79.899 Other long term (current) drug therapy
CPT/HCPCS: 36415; 80053; 80306; 81003; 83605; 83735; 84484; 85025; 93005; 96360; 99285

== ENCOUNTER 2020-12-23 13:36 | Emergency (ER) | payer OTHER ==
[2020-12-23 15:49] VITALS: RESP 16
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
[2020-12-23 16:23] LABS: Basophils % (A) 1 %; Eosinophils # (A) 0.1 k/uL (0-0.7); Eosinophils % (A) 1 %; HCT 50.6 % (39.0-53.0); HGB 17.2 gm/dL (13.0-17.5); Lymphocytes # (A) 1.2 k/uL (1.0-4.8); Lymphocytes % (A) 15 %; MCH 30.9 pg (25.0-35.0); MCHC 33.9 g/dL (31.0-37.0); MCV 90.9 fL (80.0-100.0); Mean Platelet Volume 8.2; Monocytes # (A) 0.4 k/uL (0-1.0); Monocytes % (A) 5 %; Neutrophils # (A) 6.1 k/uL (1.3-7.7); Neutrophils % (A) 76 %; Platelet Count 228 k/uL (150-450); RBC 5.57 m/uL (4.30-5.90); RDW 13.3 % (11.5-15.5)
[2020-12-23 16:34] LABS: ALT 40 U/L (4-49); AST 28 U/L (17-59); African American GFR (CKD) >90 (>60 ml/min/1.73 sqM); Albumin 4.7 g/dL (3.5-5.0); Alkaline Phosphatase 97 U/L (38-126); Anion Gap 12 mmol/L; Blood Urea Nitrogen 13 mg/dL (9-20); Calcium 10.3 mg/dL (8.4-10.2); Carbon Dioxide 25 mmol/L (22-30); Chloride 105 mmol/L (98-107); Glucose 115 mg/dL (74-99); Non-African American GFR(CKD) >90 (>60 ml/min/1.73 sqM); Potassium 3.8 mmol/L (3.5-5.1); Sodium 142 mmol/L (137-145); Total Bilirubin 0.7 mg/dL (0.2-1.3); Total Protein 7.9 g/dL (6.3-8.2)
--- NOTE | 2020-12-23 16:43 | XR ---
EXAMINATION TYPE: XR chest 1V portable DATE OF EXAM: 12/23/2020 COMPARISON: NONE HISTORY: Pain TECHNIQUE: Single frontal view of the chest is obtained. FINDINGS: There is no focal air space opacity or pneumothorax seen. The cardiac silhouette size is within normal limits. The osseous structures are intact. Not excluded tiny left pleural effusion. IMPRESSION: No definite acute infiltrate minimal pleural fluid or thickening on the left just correl ate clinically.
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
[2020-12-23] MEDS ORDERED: ACETAMINOPHEN TAB 500 MG TAB PO STA (17:59)
--- NOTE | 2020-12-23 18:01 | XR ---
EXAMINATION TYPE: XR shoulder complete LT DATE OF EXAM: 12/23/2020 COMPARISON: NONE HISTORY: Pain TECHNIQUE: Three views are submitted. FINDINGS: The osseous structures are intact. There is no acute fracture or dislocation. AC joint arthropathy. IMPRESSION: 1. AC joint arthropathy
--- NOTE | 2020-12-23 18:02 | XR ---
EXAMINATION TYPE: XR foot complete RT DATE OF EXAM: 12/23/2020 COMPARISON: NONE HISTORY: Pain small plantar calcaneal spur. TECHNIQUE: Three views are submitted. FINDINGS: The osseous structures are intact. There is no acute fracture or dislocation. Joint spaces are p reserved. IMPRESSION: 1. No acute fracture or dislocation. If symptoms persist, follow-up exam in 7 to 10 days could be ob tained.
[2020-12-23 18:37] VITALS: BP 153/84; PULSE 56; TEMP 98
== END 2020-12-23 18:35 | disposition home or self-care (01) ==
LOC: EC 13:36
DX: M25.512 Pain in left shoulder (principal); M54.2 Cervicalgia; I10 Essential (primary) hypertension; Z86.73 Personal history of transient ischemic attack (TIA), and cerebral infarction without residual deficits; Z79.02 Long term (current) use of antithrombotics/antiplatelets; Z79.899 Other long term (current) drug therapy; V28.4XXA Motorcycle driver injured in noncollision transport accident in traffic accident, initial encounter; Y93.55 Activity, bike riding; Y92.89 Other specified places as the place of occurrence of the external cause
CPT/HCPCS: 36415; 70450; 71045; 72125; 72170; 80053; 85025; 93005; 99284

== ENCOUNTER 2021-01-02 23:12 | Emergency (ER) | payer OTHER ==
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
[2021-01-02 23:40] LABS: Glucose,Whole Blood 114 mg/dL (75-99)
[2021-01-03] MEDS ORDERED: MORPHINE SULFATE 4 MG/ML SYRINGE IVP STA (00:04)
[2021-01-03 00:16] LABS: Basophils % (A) 0 %; Eosinophils % (A) 0 %; HCT 47.3 % (39.0-53.0); HGB 15.5 gm/dL (13.0-17.5); Lymphocytes # (A) 0.8 k/uL (1.0-4.8); Lymphocytes % (A) 7 %; MCH 30.3 pg (25.0-35.0); MCHC 32.9 g/dL (31.0-37.0); MCV 92.1 fL (80.0-100.0); Mean Platelet Volume 7.6; Monocytes # (A) 0.6 k/uL (0-1.0); Monocytes % (A) 5 %; Neutrophils # (A) 9.2 k/uL (1.3-7.7); Neutrophils % (A) 86 %; Platelet Count 217 k/uL (150-450); RBC 5.14 m/uL (4.30-5.90); RDW 12.8 % (11.5-15.5); WBC 10.6 k/uL (3.8-10.6)
--- NOTE | 2021-01-03 00:27 | XR ---
EXAMINATION TYPE: XR chest 1V portable DATE OF EXAM: 01/02/2021 COMPARISON: 12/23/2020 HISTORY: Trauma. Chest pain TECHNIQUE: Single view FINDINGS: Heart and mediastinum are normal. Lungs are clear. Diaphragm is normal. Bony thorax appears normal. IMPRESSION: Normal chest. No change.
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
[2021-01-03 00:28] LABS: INR 0.9 (<1.2); Partial Thromboplastin Time 22.1 sec (22.0-30.0)
--- NOTE | 2021-01-03 00:30 | CT ---
EXAMINATION TYPE: CT facial bones wo con DATE OF EXAM: 01/02/2021 COMPARISON: None HISTORY: fall CT DLP: 1272.2 mGycm Automated exposure control for dose reduction was used. Images obtained from the bottom of the mandible to the top of the frontal sinuses with no contrast. Mandibular ring is intact. Temporomandibular joints are intact. Zygomatic arches appear normal. Nasal bone is intact. There is intact maxilla. There is no evidence of orbital blowout fracture. Orbital m argins are intact. There is no evidence of retro-orbital mass. There is fairly normal aeration of the paranasal sinuses. I see no bony destructive process. There is normal appearance of the external auditory canals. There is fairly normal aeration of the mastoid si nuses. There is some soft tissue swelling lateral to the right orbit. IMPRESSION: Lateral right periorbital soft tissue swelling. No fracture seen.
[2021-01-03 00:34] LABS: ALT 57 U/L (4-49); AST 36 U/L (17-59); African American GFR (CKD) >90 (>60 ml/min/1.73 sqM); Albumin 4.7 g/dL (3.5-5.0); Alcohol <10 mg/dL; Alkaline Phosphatase 115 U/L (38-126); Anion Gap 10 mmol/L; Blood Urea Nitrogen 15 mg/dL (9-20); Calcium 10.2 mg/dL (8.4-10.2); Carbon Dioxide 25 mmol/L (22-30); Chloride 104 mmol/L (98-107); Glucose 124 mg/dL (74-99); Non-African American GFR(CKD) >90 (>60 ml/min/1.73 sqM); Potassium 3.3 mmol/L (3.5-5.1); Sodium 139 mmol/L (137-145); Total Bilirubin 0.9 mg/dL (0.2-1.3); Total Protein 7.7 g/dL (6.3-8.2)
[2021-01-03] MEDS ORDERED: DESMOPRESSIN ACETATE IV ONE (00:35)
[2021-01-03] MEDS ORDERED: SODIUM CHLORIDE 0.9% IV ONE (00:35)
--- NOTE | 2021-01-03 00:39 | CT ---
EXAMINATION TYPE: CT brain cspine wo con DATE OF EXAM: 01/02/2021 COMPARISON: 12/23/2020 HISTORY: fall CT DLP: 1272.2 mGycm Automated exposure control for dose reduction was used. Exam limited somewhat by motion and artifact from the apparentbag over the right frontal bone. There is high attenuation in the right sylvian fissure and in the lateral aspect right temporal lobe suggestive of some acute subarachnoid hemorrhage which is a change compared to old exam. There is a 2 x 0.8 cm hypodensity in the right internal capsule consistent with old lacunar infarct u nchanged. There is no midline shift. Ventricles have normal size. The calvarium is intact. There is s oft tissue swelling lateral to the right orbit. The cervical vertebra have normal alignment. Posterior elements are intact. There is no compression f racture. Facet joints are intact. Prevertebral soft tissues are intact. There is no evidence of focal bone destruction. The calvarium is intact. Skull bones appear quite dense. IMPRESSION: Within the limitations of the exam there is evidence for some acute subarachnoid hemorrhage right ant erior temporal lobe. There is old lacunar infarct right internal capsule not changed. This exam was discussed with Dr. Winter. 12:[address] scan cervical spine. No fracture.
[2021-01-03 00:55] LABS: Amorphous Sediment,Urine Rare /hpf; Appearance,Urine Clear (Clear); Bacteria,Urine Occasional /hpf; Bilirubin,Urine Negative (Negative); Blood,Urine Large (Negative); Color,Urine Yellow; Glucose,Urine (UA) Negative (Negative); Ketones,Urine Trace (Negative); Leukocyte Esterase,Urine Negative (Negative); Mucus,Urine Rare /hpf; Nitrite,Urine Negative (Negative); PH, Urine 5.5 (5.0-8.0); Protein,Urine 1+ (Negative); RBC,Urine >182 /hpf (0-5); Specific Gravity,Urine 1.025 (1.001-1.035); Squamous Epithelial Cell,Urine <1 /hpf (0-4); Urobilinogen,Urine <2.0 mg/dL (<2.0); WBC,Urine 2 /hpf (0-5)
[2021-01-03 01:00] LABS: Amphetamine Screen,Urine Not Detected (NotDetected); Barbiturate Screen,Urine Not Detected (NotDetected); Benzodiazepines Screen,Urine Not Detected (NotDetected); Cocaine Screen,Urine Not Detected (NotDetected); Methadone Screen, Urine Not Detected (NotDetected); Opiate Screen,Urine Detected (NotDetected); Oxycodone Screen, Urine Not Detected (NotDetected); Phencyclidine Screen,Urine Not Detected (NotDetected); Tricyclic Antidepressant,Urine Not Detected (NotDetected); Urn Cannabinoid Scrn Not Detected (NotDetected)
[2021-01-03 03:38] VITALS: BP 128/64; PULSE 76; RESP 16; TEMP 98.3
== END 2021-01-03 02:10 | disposition other institution (70) ==
LOC: EC 23:12
DX: S06.6X0A Traumatic subarachnoid hemorrhage without loss of consciousness, initial encounter (principal); I10 Essential (primary) hypertension; Z79.899 Other long term (current) drug therapy; Z86.73 Personal history of transient ischemic attack (TIA), and cerebral infarction without residual deficits; W19.XXXA Unspecified fall, initial encounter; Y92.009 Unspecified place in unspecified non-institutional (private) residence as the place of occurrence of the external cause
CPT/HCPCS: 36415; 93005; 86900; 86901; 80053; 84484; 85025; 85610; 85730; 86850; 81001; 80306; 72170; 71045; 72125; 70486; 70450; 99291; 99292; 96374; 96375; G0480; J2270; J2597; 80320

== ENCOUNTER → 2021-03-14 | Outpatient (CLI) | payer OTHER ==
--- NOTE | 2021-03-14 10:00 | US ---
EXAMINATION TYPE: US thyroid st tissue head/neck DATE OF EXAM: 03/14/2021 COMPARISON: CT brain CLINICAL HISTORY: E04.1 Nontoxic single thyroid nodule. GLAND SIZE: Right Lobe: 3.6x1.6x1.6 cm Overall Parenchyma: homogenous Left Lobe: 3.6x1.6x1.5 cm Overall Parenchyma: homogeneous Isthmus Thickness: 0.3 cm NODULES RIGHT: # of nodules measured on right: 1 1. 0.9 X 0.8 x 0.8 cm, lower mid, mixed cystic and solid, anechoic nodule, which is taller than wid e, with smooth margins, without echogenic foci. LEFT: # of nodules measured on left: 1 1. 0.5 X 0.4 x 0.4 cm, lower mid, mixed cystic and solid, hypoechoic nodule, which is wider than ta ll, with smooth margins, without echogenic foci. ISTHMUS: # of nodules measured in the isthmus: 0 Bilateral neck scanned, no evidence of lymphadenopathy. IMPRESSION: Nonspecific subcentimeter thyroid nodules as discussed above. Continued follow-up advised .
== END | disposition home or self-care (01) ==
LOC: RADUSWWP 09:29
PROVIDERS: ATTEND Family Medicine
DX: E04.1 Nontoxic single thyroid nodule (principal)
CPT/HCPCS: 76536